=== PATIENT | female | born 1930 | race Caucasian/White ===

== ENCOUNTER → 2017-10-28 | Outpatient (CLI) | payer MEDICARE | END | disposition home or self-care (01) | LOC: KCIC MRI 12:04 | DX: M48.061 Spinal stenosis, lumbar region without neurogenic claudication (principal); M48.56XA Collapsed vertebra, not elsewhere classified, lumbar region, initial encounter for fracture; M51.16 Intervertebral disc disorders with radiculopathy, lumbar region | CPT/HCPCS: 72148 ==

== ENCOUNTER 2018-10-17 09:34 | Emergency (ER) | payer MEDICARE ==
[~2018-10-17] VITALS: Ht 152.4 cm; Wt 61.2 kg
[~2018-10-17 09:34] MED LIST: ACET325T9 PO; ALPR0.5T PO; ASPI-630 PO; BYSTOLIC5 MG PO; CHOL100014 PO; DILT180C2 PO; DILT300C2 PO; FISH1CAP PO; LEVO100T PO; LOVA20TA2 PO; METO25TA4 PO; OMEP40CA2 PO
[2018-10-17 09:43] VITALS: BP 131/74
[2018-10-17] MEDS ORDERED: HYDROcodone/APAP 5/325MG 1 TAB TABLET PO ONE (10:00)
--- NOTE | 2018-10-17 10:50 | RAD ---
3 views left ankle and 3 views left knee HISTORY: Chronic pain AP lateral oblique views left ankle and left knee were obtained 3 views left ankle: There is a mildly comminuted fracture of the distal fibula high above the plafond with half shaft width lateral displacement. The tibiotalar relationship is normal. The remaining visualized osseous structures are grossly intact however there is osteopenia which limits sensitivity for possible nondisplaced fractures. IMPRESSION: Acute traumatic fracture of the distal fibula. End impression 3 views left knee: There is marked degenerative changes of all 3 compartments with marginal spurring. The lateral tibial plateau is depressed and irregular although a sharp fracture line is not seen. IMPRESSION: 1. Marked degenerative changes of the left knee. 2. Lateral tibial plateau fracture of uncertain chronicity. Electronically signed by: Devin Bowen III, MD (10/17/2018 10:47 AM) [id number]
--- NOTE | 2018-10-17 11:35 | RAD ---
Left Lower Extremity Venous Doppler Ultrasound History: pain Comparison: None Procedure: Color flow, duplex, spectral analysis and 2D images are obtained with and without compression in the area of the common femoral vein, superficial femoral vein - femoral vein junction, main femoral vein (superficial femoral vein) and popliteal vein. Veins of the proximal calf are also imaged. Findings: There is normal duplex flow, color flow and compressibility of all visualized vein segments. No evidence of deep venous thrombus is present. There is a large complex fluid collection in the posterior knee that measures 4.1 x 4.9 x 2.5 cm. This has multiple septations and internal echoes. Impression: No evidence of DVT. Large complex fluid collection likely a popliteal cyst. Electronically signed by: Devin Bowen III, MD (10/17/2018 11:33 AM) [id number]
[2018-10-17] MEDS ORDERED: HYDR-3164 PO (12:30)
--- NOTE | 2018-10-17 12:30 | PHYS DOC ---
Past Medical History Past Medical History: Anxiety, Arthritis, High Cholesterol, Hypertension, Hypothyroid, Other Additional Past Medical Histor: HEART PALPITATIONS Past Surgical History: Hysterectomy Alcohol Use: None Drug Use: None Adult General Chief Complaint Chief Complaint: ANKLE PROBLEM HPI HPI Patient is a 88 year old female who presents with complaining of left lower extremity pain. Patient states she was able to bearing weight yesterday without problem with using her walker since this morning she was not able to bearing weight because of severe pain in left leg. Patient denies injury, focal neuro deficit, fever and chills, history of the same problem. Review of Systems Review of Systems Constitutional: Denies fever or chills [] Eyes: Denies change in visual acuity, redness, or eye pain [] HENT: Denies nasal congestion or sore throat [] Respiratory: Denies cough or shortness of breath [] Cardiovascular: No additional information not addressed in HPI [] GI: Denies abdominal pain, nausea, vomiting, bloody stools or diarrhea [] : Denies dysuria or hematuria [] Musculoskeletal: Denies back pain, reports extremity and joint pain [] Integument: Denies rash or skin lesions [] Neurologic: Denies headache, focal weakness or sensory changes [] Endocrine: Denies polyuria or polydipsia [] All other systems were reviewed and found to be within normal limits, except as documented in this note. Current Medications Current Medications Current Medications Medications (Trade) Dose Ordered Sig/Prema Start Time Stop Time Status Last Admin Dose Admin Acetaminophen/ Hydrocodone Bitart (Lortab 5/325) 1 tab 1X ONCE 10/17/18 10:00 10/17/18 10:01 DC 10/17/18 09:59 1 TAB Allergies Allergies Allergies Coded Allergies Type Severity Reaction Last Updated Verified amoxicillin Allergy Intermediate 11/25/13 Yes atenolol Allergy Intermediate 11/25/13 Yes atorvastatin Allergy Intermediate 11/25/13 Yes cerivastatin Allergy Intermediate 11/25/13 Yes citalopram Allergy Intermediate 02/18/18 Yes clavulanic acid Allergy Intermediate 11/25/13 Yes escitalopram Allergy Intermediate 11/25/13 Yes metoprolol Allergy Intermediate 11/25/13 Yes olmesartan Allergy Intermediate 02/18/18 Yes prednisone Allergy Intermediate 02/18/18 Yes ramipril Allergy Intermediate 02/18/18 Yes rosuvastatin Allergy Intermediate 02/18/18 Yes sertraline Allergy Intermediate 11/25/13 Yes verapamil Allergy Intermediate 02/18/18 Yes carvedilol Allergy Unknown 02/17/18 Yes clonazepam Allergy Unknown 02/17/18 Yes levofloxacin Allergy Unknown 02/17/18 Yes simvastatin Allergy Unknown 02/17/18 Yes Physical Exam Physical Exam Constitutional: Well developed, well nourished, mild distress, non-toxic appearance. [] HENT: Normocephalic, atraumatic Eyes: PERRLA, EOMI, conjunctiva normal, no discharge. [] Neck: Normal range of motion, no tenderness, supple, no stridor. [] Cardiovascular:Heart rate regular rhythm, no murmur [] Lungs & Thorax: Bilateral breath sounds clear to auscultation [] Extremities: Left lower extremity without deformity, tenderness in lateral side of left lower leg without neurovascular deficit, bilateral lower extremity 1+ edema, painful range of motion of left lower extremity. Neurologic: Alert and oriented X 3, normal motor function, normal sensory function, no focal deficits noted. [] Psychologic: Affect normal, judgement normal, mood normal. [] Current Patient Data Vital Signs Vital Signs Date Time Temp Pulse Resp B/P (MAP) Pulse Ox O2 Delivery O2 Flow Rate FiO2 10/17/18 09:43 98.3 78 16 131/74 (93) 93 Room Air 98.3 EKG EKG [] Radiology/Procedures Radiology/Procedures [facility] [address] [place] [address] IMAGING REPORT Signed PATIENT: GI HERNANDEZ ACCOUNT: [id number] : 1930 LOCATION: ER AGE: 88 SEX: F EXAM STATUS: REG ER ORD. PHYSICIAN: UTE WOOD MD REASON: pain PROCEDURE: VENOUS LOWER EXTREMITY LEFT Left Lower Extremity Venous Doppler Ultrasound History: pain Comparison: None Procedure: Color flow, duplex, spectral analysis and 2D images are obtained with and without compression in the area of the common femoral vein, superficial femoral vein - femoral vein junction, main femoral vein (superficial femoral vein) and popliteal vein. Veins of the proximal calf are also imaged. Findings: There is normal duplex flow, color flow and compressibility of all visualized vein segments. No evidence of deep venous thrombus is present. There is a large complex fluid collection in the posterior knee that measures 4.1 x 4.9 x 2.5 cm. This has multiple septations and internal echoes. Impression: No evidence of DVT. Large complex fluid collection likely a popliteal cyst. Electronically signed by: Matthew Grossman III, MD (10/17/2018 11:33 AM) [id number] DICTATED and SIGNED BY: MATTHEW GROSSMAN III, MD DATE: 10/17/18 0751 [facility] [address] [place] [address] IMAGING REPORT Signed PATIENT: GI HERNANDEZ ACCOUNT: [id number] : 1930 LOCATION: ER AGE: 88 SEX: F EXAM STATUS: REG ER ORD. PHYSICIAN: UTE WOOD MD REASON: pain, no injury PROCEDURE: ANKLE LEFT 3V 3 views left ankle and 3 views left knee HISTORY: Chronic pain AP lateral oblique views left ankle and left knee were obtained 3 views left ankle: There is a mildly comminuted fracture of the distal fibula high above the plafond with half shaft width lateral displacement. The tibiotalar relationship is normal. The remaining visualized osseous structures are grossly intact however there is osteopenia which limits sensitivity for possible nondisplaced fractures. IMPRESSION: Acute traumatic fracture of the distal fibula. End impression 3 views left knee: There is marked degenerative changes of all 3 compartments with marginal spurring. The lateral tibial plateau is depressed and irregular although a sharp fracture line is not seen. IMPRESSION: 1. Marked degenerative changes of the left knee. 2. Lateral tibial plateau fracture of uncertain chronicity. Electronically signed by: Matthew Grossman III, MD (10/17/2018 10:47 AM) [id number] DICTATED and SIGNED BY: MATTHEW GROSSMAN III, MD DATE: 10/17/18 1045 Course & Med Decision Making Course & Med Decision Making Pertinent Imaging studies reviewed. (See chart for details) Evaluation of patient in ER showed 80-year-old female patient with complaining of pain in left lower extremity without known injury. Patient had distal fibula fracture and splint was applied and was advised to use home watching follow-up with correctional officer sergeant orthopedic physician. She was treated with hydrocodone in the ER and felt better. Dragon Disclaimer Dragon Disclaimer This electronic medical record was generated, in whole or in part, using a voice recognition dictation system. Departure Departure Impression: Primary Impression: Traumatic closed displaced fracture of distal fibula Disposition: HOME, SELF-CARE (at 1226) Condition: IMPROVED Referrals: NO PCP (PCP) SALOME VASQUEZ II, MD Patient Instructions: Fibular Fracture, Adult, Treated Without Immobilization Additional Instructions: Use your home walker Follow-up with correctional officer sergeant orthopedic physician in 2 or 3 days Apply ice on the affected area Follow-up with your primary care physician in 3-5 days Return to ER if not getting better Scripts Hydrocodone/Apap 5-325 (NORCO 5-325 TABLET) 1 Each Tablet 1 TAB PO PRN Q8HRS PRN for PAIN, #20 TAB 0 Refills Prov: UTE WOOD MD 10/17/18 UTE WOOD MD Oct 17, 2018 12:30
== END 2018-10-17 13:18 | disposition home or self-care (01) ==
LOC: ER 09:34
DX: S82.832A Other fracture of upper and lower end of left fibula, initial encounter for closed fracture (principal); F41.9 Anxiety disorder, unspecified; M19.90 Unspecified osteoarthritis, unspecified site; E78.00 Pure hypercholesterolemia, unspecified; I10 Essential (primary) hypertension; E03.9 Hypothyroidism, unspecified; Z90.710 Acquired absence of both cervix and uterus; Z88.1 Allergy status to other antibiotic agents; Z88.8 Allergy status to other drugs, medicaments and biological substances; X58.XXXA Exposure to other specified factors, initial encounter; Y93.89 Activity, other specified; Y92.89 Other specified places as the place of occurrence of the external cause; Y99.8 Other external cause status
CPT/HCPCS: 29515; 73562; 73610; 93971; 99284-25

== ENCOUNTER 2018-10-18 16:35 | Inpatient (IN) | payer MEDICARE ==
[~2018-10-18] VITALS: Ht 160 cm; Wt 54.5 kg
[~2018-10-18 16:35] MED LIST changes: +HYDR-3164 PO
[2018-10-18] MEDS ORDERED: ACETAMINOPHEN/CODEINE 300/30MG TABLET. PO PRN (17:15)
[2018-10-18] MEDS ORDERED: ONDANSETRON PF 4 MG/2 ML VIAL. IV PRN (17:15)
[2018-10-18] MEDS ORDERED: ONDANSETRON ODT 4 MG TAB.RAPDIS. PO PRN (17:15)
[2018-10-18] MEDS ORDERED: HYDROcodone/APAP 5/325MG 1 TAB TABLET PO PRN (17:15)
--- NOTE | 2018-10-18 17:15 | PDOC1 ---
History and Physical Date of Admission Date of Admission DATE: 10/18/18 TIME: 17:07 Identification/Chief Complaint Chief Complaint cant stand up and walk Source Source: Caregiver, Chart review, Patient History of Present Illness History of Present Illness 88-year-old white female, lives alone at home and has more than 1 Walker at home, stood up and hurt her left leg unknowingly on Thursday, which is about 8 days FLOOR SANDER. Since then, has been having difficulty and pain ambulating. Known history of possible osteopenia or even possibly osteoporosis. Known to Dr. Stark. Went to the ER yesterday and showed small fibular fracture, was sent home appropriately with a cast. But family brought her back in because clearly unable to function ADLs at home hence subsequently admitted. They do request Dr. Stark to see her. They are interested in rehabilitation/SNU on dc MUltple allergies, but so far ok with hydrocodones Past Medical History Cardiovascular: HTN, Syncope, Hyperlipidemia, Other Pulmonary: No pertinent hx CENTRAL NERVOUS SYSTEM: Other GI: Constipation, GERD Heme/Onc: No pertinent hx Hepatobiliary: No pertinent hx Psych: No pertinent hx Musculoskeletal: Osteoarthritis Rheumatologic: No pertinent hx Infectious disease: No pertinent hx Renal/: No pertinent hx Endocrine: Hypothyroidism Past Surgical History Past Surgical History: Hysterectomy Family History Family History: Coronary Artery Disease Social History Smoke: No ALCOHOL: none Drugs: None Current Medications Current Medications Active Scripts Active Loyal 5-325 Tablet (Acetaminophen/Hydrocodone Bitart) 1 Each Tablet 1 Tab PO PRN Q8HRS PRN Metoprolol Tartrate 25 Mg Tablet 25 Mg PO BID 30 Days Reported Cardizem Cd (Diltiazem Hcl) 180 Mg Cap.er.24h 180 Mg PO DAILY Aspirin 81 Mg Tab.chew 1 Tab PO DAILY Xanax (Alprazolam) 0.5 Mg Tablet 1 Tab PO BID Tylenol (Acetaminophen) 325 Mg Tablet 1 Tab PO PRN Q4HRS Fish Oil 1,200 Mg Fish Oil (Fish Oil/Dha/Epa) 1 Each Capsule 1 Each PO Lovastatin 20 Mg Tablet 20 Mg PO DAILY16 Synthroid (Levothyroxine Sodium) 100 Mcg Tablet 100 Mcg PO Prilosec (Omeprazole) 40 Mg Capsule.dr 40 Mg PO Allergies Allergies: Coded Allergies: amoxicillin (Verified Allergy, Intermediate, 11/25/13) atenolol (Verified Allergy, Intermediate, 11/25/13) atorvastatin (Verified Allergy, Intermediate, 11/25/13) cerivastatin (Verified Allergy, Intermediate, 11/25/13) citalopram (Verified Allergy, Intermediate, 02/18/18) clavulanic acid (Verified Allergy, Intermediate, 11/25/13) escitalopram (Verified Allergy, Intermediate, 11/25/13) metoprolol (Verified Allergy, Intermediate, 11/25/13) olmesartan (Verified Allergy, Intermediate, 02/18/18) prednisone (Verified Allergy, Intermediate, 02/18/18) ramipril (Verified Allergy, Intermediate, 02/18/18) rosuvastatin (Verified Allergy, Intermediate, 02/18/18) sertraline (Verified Allergy, Intermediate, 11/25/13) verapamil (Verified Allergy, Intermediate, 02/18/18) carvedilol (Verified Allergy, Unknown, 02/17/18) clonazepam (Verified Allergy, Unknown, 02/17/18) levofloxacin (Verified Allergy, Unknown, 02/17/18) simvastatin (Verified Allergy, Unknown, 02/17/18) ROS Review of System left Leg pain otherwise the rest of ROS 14 point negative Physical Exam General: Alert, Oriented X3, Cooperative, No acute distress HEENT: Atraumatic, PERRLA, EOMI Lungs: Clear to auscultation, Normal air movement Heart: S1S2, RRR, no thrills, no rubs, no gallops, no murmurs Cardiovascular: S1, S2 Breasts: Normal, Rt breast nml w/o mass, Lt breast nml w/o mass, Nipples normal Abdomen: Normal bowel sounds, Soft, No tenderness, No hepatosplenomegaly, No masses PELVIC: Nml ext genitalia Extremities: Other (left leg cast -she is in a wheelchair) Skin: No rashes, No breakdown, No significant lesion Neuro: Normal gait, Normal speech, Strength at 5/5 X4 ext, Normal tone, Sensation intact, Cranial nerves 3-12 NL, Reflexes 2+ Psych/Mental Status: Mental status NL, Mood NL VTE Prophylaxis Ordered VTE Prophylaxis Devices: Yes VTE Pharmacological Prophylaxi: Yes Assessment/Plan Assessment/Plan Fibular fracture acute onset-duration 7 days Possible osteoporosis Possible vitamin D deficiency Multiple allergies Hypothyroidism on Synthroid GERD on PPI Dyslipidemia on statin Allergies on Flonase Hypertension on Cardizem PLAN: Admit [address] Stark PT OT Home meds I have reconciled Pain control Social work-snu/rehabilitation FULL CODE DW family GINGER ALBA Y Oct 18, 2018 17:15
[2018-10-18 17:27] LABS: BASO # 0.1 x10^3/uL (0.0-0.2); BASO % 1 % (0-3); EOS % 0 % (0-3); HEMATOCRIT 36.4 % (36.0-47.0); LYMPH # 2.1 x10^3/uL (1.0-4.8); LYMPH % 26 % (24-48); MEAN CORPUSCULAR HEMOGLOBIN 29 pg (25-35); MEAN CORPUSCULAR HGB CONC 33 g/dL (31-37); MEAN CORPUSCULAR VOLUME 89 fL (79-100); MONO # 0.9 x10^3/uL (0.0-1.1); MONO % 11 % (0-9); NEUT # 5.1 x10^3uL (1.8-7.7); NEUT % 62 % (31-73); PLATELET COUNT 409 x10^3/uL (140-400); WHITE BLOOD COUNT 8.2 x10^3/uL (4.0-11.0)
[2018-10-18] MEDS ORDERED: ACETAMINOPHEN 325 MG TABLET. PO PRN (17:30)
--- NOTE | 2018-10-18 17:34 | PHYS DOC ---
Past Medical History Past Medical History: Anxiety, Arthritis, High Cholesterol, Hypertension, Hypothyroid, Other Additional Past Medical Histor: HEART PALPITATIONS Past Surgical History: Hysterectomy Alcohol Use: None Drug Use: None Adult General Chief Complaint Chief Complaint: LOWER EXT PAIN HPI HPI Patient is a 88 year old female who presents with complaining of weakness and unable to use walker. Patient was seen in this emergency room yesterday and was diagnosed with left fibular shaft fracture and had splint placement. Patient had walker at home and was discharged home with instructions with follow-up with consumer services advisor orthopedic physician but patient brought back to emergency room because she was not able to use her walker because of upper extremity weakness. She denies focal neuro deficit and denies pain in her left leg without bearing weight. Review of Systems Review of Systems Constitutional: Denies fever or chills [] Eyes: Denies change in visual acuity, redness, or eye pain [] HENT: Denies nasal congestion or sore throat [] Respiratory: Denies cough or shortness of breath [] Cardiovascular: No additional information not addressed in HPI [] GI: Denies abdominal pain, nausea, vomiting, bloody stools or diarrhea [] : Denies dysuria or hematuria [] Musculoskeletal: Denies back pain, reports joint pain [] Integument: Denies rash or skin lesions [] Neurologic: Denies headache, focal weakness or sensory changes [] Endocrine: Denies polyuria or polydipsia [] All other systems were reviewed and found to be within normal limits, except as documented in this note. Current Medications Current Medications Current Medications Medications (Trade) Dose Ordered Sig/Prema Start Time Stop Time Status Last Admin Dose Admin Acetaminophen (Tylenol) 500 mg PRN Q6HRS PRN 10/18/18 17:15 Acetaminophen/ Codeine Phosphate (Tylenol #3) 1 tab PRN Q6HRS PRN 10/18/18 17:15 Acetaminophen/ Hydrocodone Bitart (Lortab 5/325) 1 tab PRN Q4HRS PRN 10/18/18 17:15 Ondansetron HCl (Zofran Odt) 4 mg PRN Q6HRS PRN 10/18/18 17:15 Ondansetron HCl (Zofran) 4 mg PRN Q6HRS PRN 10/18/18 17:15 Allergies Allergies Allergies Coded Allergies Type Severity Reaction Last Updated Verified amoxicillin Allergy Intermediate 11/25/13 Yes atenolol Allergy Intermediate 11/25/13 Yes atorvastatin Allergy Intermediate 11/25/13 Yes cerivastatin Allergy Intermediate 11/25/13 Yes citalopram Allergy Intermediate 02/18/18 Yes clavulanic acid Allergy Intermediate 11/25/13 Yes escitalopram Allergy Intermediate 11/25/13 Yes metoprolol Allergy Intermediate 11/25/13 Yes olmesartan Allergy Intermediate 02/18/18 Yes prednisone Allergy Intermediate 02/18/18 Yes ramipril Allergy Intermediate 02/18/18 Yes rosuvastatin Allergy Intermediate 02/18/18 Yes sertraline Allergy Intermediate 11/25/13 Yes verapamil Allergy Intermediate 02/18/18 Yes carvedilol Allergy Unknown 02/17/18 Yes clonazepam Allergy Unknown 02/17/18 Yes levofloxacin Allergy Unknown 02/17/18 Yes simvastatin Allergy Unknown 02/17/18 Yes Physical Exam Physical Exam Constitutional: Well developed, well nourished, mild distress, non-toxic appearance. [] HENT: Normocephalic, atraumatic. Eyes: PERRLA, EOMI, conjunctiva normal, no discharge. [] Neck: Normal range of motion, no tenderness, supple, no stridor. [] Cardiovascular:Heart rate regular rhythm, no murmur [] Lungs & Thorax: Bilateral breath sounds clear to auscultation [] Skin: Warm, dry, no erythema, no rash. [] Back: No tenderness, no CVA tenderness. [] Extremities: Left lower extremity in a splint with normal cap refill in the left toes, no cyanosis, no clubbing, ROM intact, no edema. [] Neurologic: Alert and oriented X 3, normal motor function, normal sensory function, no focal deficits noted. [] Psychologic: Affect normal, judgement normal, mood normal. [] Current Patient Data Lab Values Laboratory Tests Test 10/18/18 17:11 White Blood Count 8.2 x10^3/uL (4.0-11.0) Red Blood Count 4.10 x10^6/uL (3.50-5.40) Hemoglobin 12.0 g/dL (12.0-15.5) Hematocrit 36.4 % (36.0-47.0) Mean Corpuscular Volume 89 fL (79-100) Mean Corpuscular Hemoglobin 29 pg (25-35) Mean Corpuscular Hemoglobin Concent 33 g/dL (31-37) Red Cell Distribution Width 15.0 % (11.5-14.5) H Platelet Count 409 x10^3/uL (140-400) H Neutrophils (%) (Auto) 62 % (31-73) Lymphocytes (%) (Auto) 26 % (24-48) Monocytes (%) (Auto) 11 % (0-9) H Eosinophils (%) (Auto) 0 % (0-3) Basophils (%) (Auto) 1 % (0-3) Neutrophils # (Auto) 5.1 x10^3uL (1.8-7.7) Lymphocytes # (Auto) 2.1 x10^3/uL (1.0-4.8) Monocytes # (Auto) 0.9 x10^3/uL (0.0-1.1) Eosinophils # (Auto) 0.0 x10^3/uL (0.0-0.7) Basophils # (Auto) 0.1 x10^3/uL (0.0-0.2) Prothrombin Time 12.4 SEC (11.7-14.0) Prothrombin Time INR 1.0 (0.8-1.1) Sodium Level 134 mmol/L (136-145) L Potassium Level 3.5 mmol/L (3.5-5.1) Chloride Level 97 mmol/L (98-107) L Carbon Dioxide Level 27 mmol/L (21-32) Anion Gap 10 (6-14) Blood Urea Nitrogen 18 mg/dL (7-20) Creatinine 1.0 mg/dL (0.6-1.0) Estimated GFR (Cockcroft-Gault) 52.3 BUN/Creatinine Ratio 18 (6-20) Glucose Level 119 mg/dL (70-99) H Calcium Level 9.5 mg/dL (8.5-10.1) Total Bilirubin 0.4 mg/dL (0.2-1.0) Aspartate Amino Transferase (AST) 20 U/L (15-37) Alanine Aminotransferase (ALT) 16 U/L (14-59) Alkaline Phosphatase 64 U/L (46-116) Total Protein 7.6 g/dL (6.4-8.2) Albumin 3.5 g/dL (3.4-5.0) Albumin/Globulin Ratio 0.9 (1.0-1.7) L Laboratory Tests 10/18/18 17:11 Laboratory Tests 10/18/18 17:11 EKG EKG [] Radiology/Procedures Radiology/Procedures [] Course & Med Decision Making Course & Med Decision Making Pertinent Labs reviewed. (See chart for details) Patient requiring admission for further evaluation and treatment. Discussed with Dr. Isidro who is in agreement with admission. Discussed findings and plan with patient and family, who acknowledge understanding and agreement. Dragon Disclaimer Dragon Disclaimer This electronic medical record was generated, in whole or in part, using a voice recognition dictation system. Departure Departure Impression: Primary Impression: Weakness Additional Impression: Fibula fracture Disposition: 09 ADMITTED INPATIENT Admitting Physician: Juana Isidro Condition: IMPROVED Referrals: NO PCP (PCP) Problem Qualifiers Additional Impression: Fibula fracture Encounter type: sequela Fibula location: shaft Fracture type: closed Fracture morphology: comminuted Fracture alignment: nondisplaced Laterality: left Qualified Codes: S82.455S - Nondisplaced comminuted fracture of shaft of left fibula, sequela UTE WOOD MD Oct 18, 2018 17:34
[2018-10-18 17:42] LABS: CALCIUM 9.5 mg/dL (8.5-10.1); GFR 52.3; POTASSIUM 3.5 mmol/L (3.5-5.1)
[2018-10-18 17:45] LABS: PROTHROMBIN TIME PATIENT 12.4 SEC (11.7-14.0)
[2018-10-18 17:48] LABS: ALBUMIN 3.5 g/dL (3.4-5.0); ALBUMIN/GLOBULIN RATIO 0.9 (1.0-1.7); TOTAL BILIRUBIN 0.4 mg/dL (0.2-1.0); TOTAL PROTEIN 7.6 g/dL (6.4-8.2)
[2018-10-18 18:30] VITALS: BP 138/77
[2018-10-18] MEDS: ALPRAZolam 0.5 MG TABLET PO SCH (21:00)
[2018-10-18] MEDS: METOPROLOL TART IMMED RELEASE 25 MG TABLET. PO SCH (21:33)
[2018-10-18 23:00] VITALS: BP 134/70
[2018-10-19] MEDS: ACETAMINOPHEN 500 MG TABLET PO PRN (01:33)
[2018-10-19 03:00] VITALS: BP 147/76
[2018-10-19] MEDS: LEVOTHYROXINE 100 MCG TABLET PO SCH (05:35)
[2018-10-19 07:00] VITALS: BP 150/75
[2018-10-19] MEDS: ALPRAZolam 0.5 MG TABLET PO SCH ×2 (09:00→21:28)
--- NOTE | 2018-10-19 09:11 | NUR ---
SW following for discharge planning. Chart reviewed, discussed with RN, pt is from home alone. Waiting on ortho consult and PT/OT recommendations. Family interested in SNU at discharge. SW will continue to follow.
[2018-10-19] MEDS: OMEGA-3 FATTY ACIDS/FISH OIL 1,000 MG CAPSULE. PO SCH (09:34)
[2018-10-19] MEDS: PANTOPRAZOLE 40 MG TABLET.DR. PO SCH (09:34)
[2018-10-19] MEDS: ASPIRIN CHEWABLE 81 MG TABLET. PO SCH (09:34)
[2018-10-19] MEDS: FLUTICASONE 50MCG/NASAL SPRAY 16GM BOTTLE. NS SCH (09:35)
[2018-10-19] MEDS: METOPROLOL TART IMMED RELEASE 25 MG TABLET. PO SCH ×2 (09:35→21:28)
[2018-10-19 11:00] VITALS: BP 137/81
--- NOTE | 2018-10-19 11:32 | PDOC ---
PROGRESS NOTES Chief Complaint Chief Complaint L Fibular Fracture History of Present Illness History of Present Illness The patient was seen resting comfortably in bed today. She is doing well with no complaints. Vitals Vitals Vital Signs Date Time Temp Pulse Resp B/P (MAP) Pulse Ox O2 Delivery O2 Flow Rate FiO2 10/19/18 09:35 75 150/75 10/19/18 08:00 Room Air 10/19/18 07:00 98.8 18 93 98.8 Physical Exam General: Alert, Oriented X3, Cooperative, No acute distress Heart: Regular rate, Normal S1, Normal S2, No murmurs Lungs: Clear (No wheezes, rales, or rhonchi) Abdomen: Soft, No tenderness, No masses Extremities: No edema, Normal pulses, No tenderness/swelling, Other (left leg cast -she is in a wheelchair) Skin: No rashes, No breakdown, No significant lesion Labs LABS Laboratory Tests Test 10/18/18 17:11 White Blood Count 8.2 x10^3/uL (4.0-11.0) Red Blood Count 4.10 x10^6/uL (3.50-5.40) Hemoglobin 12.0 g/dL (12.0-15.5) Hematocrit 36.4 % (36.0-47.0) Mean Corpuscular Volume 89 fL (79-100) Mean Corpuscular Hemoglobin 29 pg (25-35) Mean Corpuscular Hemoglobin Concent 33 g/dL (31-37) Red Cell Distribution Width 15.0 % (11.5-14.5) Platelet Count 409 x10^3/uL (140-400) Neutrophils (%) (Auto) 62 % (31-73) Lymphocytes (%) (Auto) 26 % (24-48) Monocytes (%) (Auto) 11 % (0-9) Eosinophils (%) (Auto) 0 % (0-3) Basophils (%) (Auto) 1 % (0-3) Neutrophils # (Auto) 5.1 x10^3uL (1.8-7.7) Lymphocytes # (Auto) 2.1 x10^3/uL (1.0-4.8) Monocytes # (Auto) 0.9 x10^3/uL (0.0-1.1) Eosinophils # (Auto) 0.0 x10^3/uL (0.0-0.7) Basophils # (Auto) 0.1 x10^3/uL (0.0-0.2) Prothrombin Time 12.4 SEC (11.7-14.0) Prothromb Time International Ratio 1.0 (0.8-1.1) Sodium Level 134 mmol/L (136-145) Potassium Level 3.5 mmol/L (3.5-5.1) Chloride Level 97 mmol/L (98-107) Carbon Dioxide Level 27 mmol/L (21-32) Anion Gap 10 (6-14) Blood Urea Nitrogen 18 mg/dL (7-20) Creatinine 1.0 mg/dL (0.6-1.0) Estimated GFR (Cockcroft-Gault) 52.3 BUN/Creatinine Ratio 18 (6-20) Glucose Level 119 mg/dL (70-99) Calcium Level 9.5 mg/dL (8.5-10.1) Total Bilirubin 0.4 mg/dL (0.2-1.0) Aspartate Amino Transf (AST/SGOT) 20 U/L (15-37) Alanine Aminotransferase (ALT/SGPT) 16 U/L (14-59) Alkaline Phosphatase 64 U/L (46-116) Total Protein 7.6 g/dL (6.4-8.2) Albumin 3.5 g/dL (3.4-5.0) Albumin/Globulin Ratio 0.9 (1.0-1.7) 25-Hydroxy Vitamin D Total 25.7 ng/mL (30-100) Review of Systems Review of Systems Patient denies fevers, chills, N/V, CP, SOB, and diarrhea Assessment and Plan Assessmemt and Plan Problems Medical Problems: (1) Fibula fracture Status: Acute (2) Weakness Status: Acute Assessment: Fibular fracture acute onset-duration 7 days Possible osteoporosis Possible vitamin D deficiency Multiple allergies Hypothyroidism on Synthroid GERD on PPI Dyslipidemia on statin Allergies on Flonase Hypertension on Cardizem Plan: Admit [address] Stark- enrique PT/OT DVT prophylaxis Continue home meds F/u labs SNU eval Comment Review of Relevant I have reviewed the following items lubna (where applicable) has been applied. Labs Laboratory Tests Test 10/18/18 17:11 White Blood Count 8.2 x10^3/uL (4.0-11.0) Red Blood Count 4.10 x10^6/uL (3.50-5.40) Hemoglobin 12.0 g/dL (12.0-15.5) Hematocrit 36.4 % (36.0-47.0) Mean Corpuscular Volume 89 fL (79-100) Mean Corpuscular Hemoglobin 29 pg (25-35) Mean Corpuscular Hemoglobin Concent 33 g/dL (31-37) Red Cell Distribution Width 15.0 % (11.5-14.5) Platelet Count 409 x10^3/uL (140-400) Neutrophils (%) (Auto) 62 % (31-73) Lymphocytes (%) (Auto) 26 % (24-48) Monocytes (%) (Auto) 11 % (0-9) Eosinophils (%) (Auto) 0 % (0-3) Basophils (%) (Auto) 1 % (0-3) Neutrophils # (Auto) 5.1 x10^3uL (1.8-7.7) Lymphocytes # (Auto) 2.1 x10^3/uL (1.0-4.8) Monocytes # (Auto) 0.9 x10^3/uL (0.0-1.1) Eosinophils # (Auto) 0.0 x10^3/uL (0.0-0.7) Basophils # (Auto) 0.1 x10^3/uL (0.0-0.2) Prothrombin Time 12.4 SEC (11.7-14.0) Prothromb Time International Ratio 1.0 (0.8-1.1) Sodium Level 134 mmol/L (136-145) Potassium Level 3.5 mmol/L (3.5-5.1) Chloride Level 97 mmol/L (98-107) Carbon Dioxide Level 27 mmol/L (21-32) Anion Gap 10 (6-14) Blood Urea Nitrogen 18 mg/dL (7-20) Creatinine 1.0 mg/dL (0.6-1.0) Estimated GFR (Cockcroft-Gault) 52.3 BUN/Creatinine Ratio 18 (6-20) Glucose Level 119 mg/dL (70-99) Calcium Level 9.5 mg/dL (8.5-10.1) Total Bilirubin 0.4 mg/dL (0.2-1.0) Aspartate Amino Transf (AST/SGOT) 20 U/L (15-37) Alanine Aminotransferase (ALT/SGPT) 16 U/L (14-59) Alkaline Phosphatase 64 U/L (46-116) Total Protein 7.6 g/dL (6.4-8.2) Albumin 3.5 g/dL (3.4-5.0) Albumin/Globulin Ratio 0.9 (1.0-1.7) 25-Hydroxy Vitamin D Total 25.7 ng/mL (30-100) Laboratory Tests Test 10/18/18 17:11 White Blood Count 8.2 x10^3/uL (4.0-11.0) Red Blood Count 4.10 x10^6/uL (3.50-5.40) Hemoglobin 12.0 g/dL (12.0-15.5) Hematocrit 36.4 % (36.0-47.0) Mean Corpuscular Volume 89 fL (79-100) Mean Corpuscular Hemoglobin 29 pg (25-35) Mean Corpuscular Hemoglobin Concent 33 g/dL (31-37) Red Cell Distribution Width 15.0 % (11.5-14.5) Platelet Count 409 x10^3/uL (140-400) Neutrophils (%) (Auto) 62 % (31-73) Lymphocytes (%) (Auto) 26 % (24-48) Monocytes (%) (Auto) 11 % (0-9) Eosinophils (%) (Auto) 0 % (0-3) Basophils (%) (Auto) 1 % (0-3) Neutrophils # (Auto) 5.1 x10^3uL (1.8-7.7) Lymphocytes # (Auto) 2.1 x10^3/uL (1.0-4.8) Monocytes # (Auto) 0.9 x10^3/uL (0.0-1.1) Eosinophils # (Auto) 0.0 x10^3/uL (0.0-0.7) Basophils # (Auto) 0.1 x10^3/uL (0.0-0.2) Prothrombin Time 12.4 SEC (11.7-14.0) Prothromb Time International Ratio 1.0 (0.8-1.1) Sodium Level 134 mmol/L (136-145) Potassium Level 3.5 mmol/L (3.5-5.1) Chloride Level 97 mmol/L (98-107) Carbon Dioxide Level 27 mmol/L (21-32) Anion Gap 10 (6-14) Blood Urea Nitrogen 18 mg/dL (7-20) Creatinine 1.0 mg/dL (0.6-1.0) Estimated GFR (Cockcroft-Gault) 52.3 BUN/Creatinine Ratio 18 (6-20) Glucose Level 119 mg/dL (70-99) Calcium Level 9.5 mg/dL (8.5-10.1) Total Bilirubin 0.4 mg/dL (0.2-1.0) Aspartate Amino Transf (AST/SGOT) 20 U/L (15-37) Alanine Aminotransferase (ALT/SGPT) 16 U/L (14-59) Alkaline Phosphatase 64 U/L (46-116) Total Protein 7.6 g/dL (6.4-8.2) Albumin 3.5 g/dL (3.4-5.0) Albumin/Globulin Ratio 0.9 (1.0-1.7) 25-Hydroxy Vitamin D Total 25.7 ng/mL (30-100) Medications Current Medications Acetaminophen/ Hydrocodone Bitart (Lortab 5/325) 1 tab PRN Q4HRS PRN PO SEVERE PAIN; Start 10/18/18 at 17:15 Acetaminophen (Tylenol) 500 mg PRN Q6HRS PRN PO MILD PAIN / TEMP Last administered on 10/19/18at 01:33; Start 10/18/18 at 17:15 Acetaminophen/ Codeine Phosphate (Tylenol #3) 1 tab PRN Q6HRS PRN PO MODERATE PAIN; Start 10/18/18 at 17:15 Ondansetron HCl (Zofran) 4 mg PRN Q6HRS PRN IV NAUSEA/VOMITING; Start 10/18/18 at 17:15 Ondansetron HCl (Zofran Odt) 4 mg PRN Q6HRS PRN PO NAUSEA/VOMITING; Start 10/18/18 at 17:15 Acetaminophen (Tylenol) 325 mg PRN Q4HRS PRN PO MILD PAIN / TEMP; Start 10/18/18 at 17:30 Alprazolam (Xanax) 0.5 mg BID PO ; Start 10/18/18 at 21:00 Aspirin (Children'S Aspirin) 81 mg DAILY PO Last administered on 10/19/18 09:34; Start 10/19/18 at 09:00 Levothyroxine Sodium (Synthroid) 100 mcg DAILY06 PO Last administered on 10/19/18 05:35; Start 10/19/18 at 06:00 Metoprolol Tartrate (Lopressor) 25 mg BID PO Last administered on 10/19/18 09:35; Start 10/18/18 at 21:00 Diltiazem HCl (Cardizem 24hr Cd) 180 mg DAILY PO Last administered on 10/19/18 09:35; Start 10/19/18 at 09:00 Non-Formulary Medication (Lovastatin ) 20 mg DAILY16 PO ; Start 10/19/18 at 16:00; Status UNV Fish Oil (Fish Oil) 1,000 mg DAILY PO Last administered on 10/19/18 09:34; Start 10/19/18 at 09:00 Pantoprazole Sodium (Protonix) 40 mg DAILYAC PO Last administered on 10/19/18 09:34; Start 10/19/18 at 07:30 Fluticasone Propionate (Flonase) 2 spray DAILY NS Last administered on 10/19/18 09:35; Start 10/19/18 at 09:00 Active Scripts Active [place] 5-325 Tablet (Acetaminophen/Hydrocodone Bitart) 1 Each Tablet 1 Tab PO PRN Q8HRS PRN Metoprolol Tartrate 25 Mg Tablet 25 Mg PO BID 30 Days Reported Cardizem Cd (Diltiazem Hcl) 180 Mg Cap.er.24h 180 Mg PO DAILY Aspirin 81 Mg Tab.chew 1 Tab PO DAILY Xanax (Alprazolam) 0.5 Mg Tablet 1 Tab PO BID Tylenol (Acetaminophen) 325 Mg Tablet 1 Tab PO PRN Q4HRS Fish Oil 1,200 Mg Fish Oil (Fish Oil/Dha/Epa) 1 Each Capsule 1 Each PO Lovastatin 20 Mg Tablet 20 Mg PO DAILY16 Synthroid (Levothyroxine Sodium) 100 Mcg Tablet 100 Mcg PO Prilosec (Omeprazole) 40 Mg Capsule.dr 40 Mg PO Vitals/I & O Vital Sign - Last 24 Hours 10/18/18 10/18/18 10/18/18 10/18/18 17:38 18:01 18:30 20:00 Temp 98.4 98.4 Pulse 96 98 87 Resp 16 18 18 B/P (MAP) 139/78 (98) 128/83 (98) 138/77 (97) Pulse Ox 95 95 96 O2 Delivery Room Air Room Air Room Air 10/18/18 10/18/18 10/19/18 10/19/18 21:33 23:00 03:00 07:00 Temp 98.4 97.7 98.8 98.4 97.7 98.8 Pulse 87 70 80 75 Resp 16 18 18 B/P (MAP) 138/77 134/70 (91) 147/76 (99) 150/75 (100) Pulse Ox 94 91 93 O2 Delivery Room Air Room Air Room Air 10/19/18 10/19/18 10/19/18 08:00 09:35 09:35 Pulse 75 75 B/P (MAP) 150/75 150/75 O2 Delivery Room Air JAMES SHELTON III DO Oct 19, 2018 11:32
[2018-10-19 15:00] VITALS: BP 155/75
[2018-10-19] MEDS ORDERED: NON FORMULARY ITEM (Lovastatin 20 MG) PO SCH (16:00)
--- NOTE | 2018-10-19 19:10 | PDOC2 ---
CONSULT Date of Consult Date of Consult DATE: 10/19/18 TIME: 19:03 Reason for Consult Reason for Consult: left fibula fracture Identification/Chief Complaint Chief Complaint left leg pain after a fall Source Source: Chart review, Patient History of Present Illness Reason for Visit: 88 year old woman who lives alone. She sustained a fibula fracture, and was treated in a splint, but had too much pain to care for herself. Since then, has been having difficulty and pain ambulating. Known history of possible osteopenia or even possibly osteoporosis. Known to Dr. Stark. Went to the ER and showed fibula shaft fracture, was sent home. But family brought her back in because clearly unable to function ADLs at home hence subsequently admitted. They do request Dr. 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 They are interested in rehabilitation/SNU on dc. She sometimes still drives. Her son and daughter frequently help her. Past Medical History Cardiovascular: HTN, Syncope, Hyperlipidemia, Other Pulmonary: No pertinent hx CENTRAL NERVOUS SYSTEM: Other GI: Constipation, GERD Heme/Onc: No pertinent hx Hepatobiliary: No pertinent hx Psych: No pertinent hx Musculoskeletal: Osteoarthritis Rheumatologic: No pertinent hx Infectious disease: No pertinent hx Renal/: No pertinent hx Endocrine: Hypothyroidism Past Surgical History Past Surgical History: Hysterectomy Family History Family History: Coronary Artery Disease Social History No ALCOHOL: none Drugs: None Lives: Alone Domestic Violence: Neg Current Problem List Problem List Problems Medical Problems: (1) Fibula fracture Status: Acute (2) Weakness Status: Acute Current Medications Current Medications Current Medications Acetaminophen/ Hydrocodone Bitart (Lortab 5/325) 1 tab PRN Q4HRS PRN PO SEVERE PAIN; Start 10/18/18 at 17:15 Acetaminophen (Tylenol) 500 mg PRN Q6HRS PRN PO MILD PAIN / TEMP Last administered on 10/19/18at 01:33; Start 10/18/18 at 17:15 Acetaminophen/ Codeine Phosphate (Tylenol #3) 1 tab PRN Q6HRS PRN PO MODERATE PAIN; Start 10/18/18 at 17:15 Ondansetron HCl (Zofran) 4 mg PRN Q6HRS PRN IV NAUSEA/VOMITING; Start 10/18/18 at 17:15 Ondansetron HCl (Zofran Odt) 4 mg PRN Q6HRS PRN PO NAUSEA/VOMITING; Start 10/18/18 at 17:15 Acetaminophen (Tylenol) 325 mg PRN Q4HRS PRN PO MILD PAIN / TEMP; Start 10/18/18 at 17:30 Alprazolam (Xanax) 0.5 mg BID PO ; Start 10/18/18 at 21:00 Aspirin (Children'S Aspirin) 81 mg DAILY PO Last administered on 10/19/18 09:34; Start 10/19/18 at 09:00 Levothyroxine Sodium (Synthroid) 100 mcg DAILY06 PO Last administered on 10/19/18 05:35; Start 10/19/18 at 06:00 Metoprolol Tartrate (Lopressor) 25 mg BID PO Last administered on 10/19/18 09:35; Start 10/18/18 at 21:00 Diltiazem HCl (Cardizem 24hr Cd) 180 mg DAILY PO Last administered on 10/19/18 09:35; Start 10/19/18 at 09:00 Non-Formulary Medication (Lovastatin ) 20 mg DAILY16 PO ; Start 10/19/18 at 16:00; Stop 10/19/18 at 16:24; Status DC Fish Oil (Fish Oil) 1,000 mg DAILY PO Last administered on 10/19/18 09:34; Start 10/19/18 at 09:00 Pantoprazole Sodium (Protonix) 40 mg DAILYAC PO Last administered on 10/19/18 09:34; Start 10/19/18 at 07:30 Fluticasone Propionate (Flonase) 2 spray DAILY NS Last administered on 10/19/18 09:35; Start 10/19/18 at 09:00 Non-Formulary Medication (Lovastatin ) 20 mg QMWF PO ; Start 10/20/18 at 16:00 Active Scripts Active [place] 5-325 Tablet (Acetaminophen/Hydrocodone Bitart) 1 Each Tablet 1 Tab PO PRN Q8HRS PRN Metoprolol Tartrate 25 Mg Tablet 25 Mg PO BID 30 Days Reported Cardizem Cd (Diltiazem Hcl) 180 Mg Cap.er.24h 180 Mg PO DAILY Aspirin 81 Mg Tab.chew 1 Tab PO DAILY Xanax (Alprazolam) 0.5 Mg Tablet 1 Tab PO BID Tylenol (Acetaminophen) 325 Mg Tablet 1 Tab PO PRN Q4HRS Fish Oil 1,200 Mg Fish Oil (Fish Oil/Dha/Epa) 1 Each Capsule 1 Each PO Lovastatin 20 Mg Tablet 20 Mg PO DAILY16 Synthroid (Levothyroxine Sodium) 100 Mcg Tablet 100 Mcg PO Prilosec (Omeprazole) 40 Mg Capsule.dr 40 Mg PO Allergies Allergies: Coded Allergies: amoxicillin (Verified Allergy, Intermediate, 11/25/13) atenolol (Verified Allergy, Intermediate, 11/25/13) atorvastatin (Verified Allergy, Intermediate, 11/25/13) cerivastatin (Verified Allergy, Intermediate, 11/25/13) citalopram (Verified Allergy, Intermediate, 02/18/18) clavulanic acid (Verified Allergy, Intermediate, 11/25/13) escitalopram (Verified Allergy, Intermediate, 11/25/13) metoprolol (Verified Allergy, Intermediate, 11/25/13) olmesartan (Verified Allergy, Intermediate, 02/18/18) prednisone (Verified Allergy, Intermediate, 02/18/18) ramipril (Verified Allergy, Intermediate, 02/18/18) rosuvastatin (Verified Allergy, Intermediate, 02/18/18) sertraline (Verified Allergy, Intermediate, 11/25/13) verapamil (Verified Allergy, Intermediate, 02/18/18) carvedilol (Verified Allergy, Unknown, 02/17/18) clonazepam (Verified Allergy, Unknown, 02/17/18) levofloxacin (Verified Allergy, Unknown, 02/17/18) simvastatin (Verified Allergy, Unknown, 02/17/18) Physical Exam General: Alert, Cooperative HEENT: Atraumatic Lungs: Normal air movement Extremities: No cyanosis, Other (mild edema. splint on left leg. tenderness at mid fibula.) Skin: No significant lesion Neuro: Sensation intact Vitals VITALS Vital Signs Date Time Temp Pulse Resp B/P (MAP) Pulse Ox O2 Delivery O2 Flow Rate FiO2 10/19/18 15:00 98.3 77 18 155/75 (101) 92 Room Air 98.3 Labs Labs Laboratory Tests Test 10/18/18 17:11 White Blood Count 8.2 x10^3/uL (4.0-11.0) Red Blood Count 4.10 x10^6/uL (3.50-5.40) Hemoglobin 12.0 g/dL (12.0-15.5) Hematocrit 36.4 % (36.0-47.0) Mean Corpuscular Volume 89 fL (79-100) Mean Corpuscular Hemoglobin 29 pg (25-35) Mean Corpuscular Hemoglobin Concent 33 g/dL (31-37) Red Cell Distribution Width 15.0 % (11.5-14.5) Platelet Count 409 x10^3/uL (140-400) Neutrophils (%) (Auto) 62 % (31-73) Lymphocytes (%) (Auto) 26 % (24-48) Monocytes (%) (Auto) 11 % (0-9) Eosinophils (%) (Auto) 0 % (0-3) Basophils (%) (Auto) 1 % (0-3) Neutrophils # (Auto) 5.1 x10^3uL (1.8-7.7) Lymphocytes # (Auto) 2.1 x10^3/uL (1.0-4.8) Monocytes # (Auto) 0.9 x10^3/uL (0.0-1.1) Eosinophils # (Auto) 0.0 x10^3/uL (0.0-0.7) Basophils # (Auto) 0.1 x10^3/uL (0.0-0.2) Prothrombin Time 12.4 SEC (11.7-14.0) Prothromb Time International Ratio 1.0 (0.8-1.1) Sodium Level 134 mmol/L (136-145) Potassium Level 3.5 mmol/L (3.5-5.1) Chloride Level 97 mmol/L (98-107) Carbon Dioxide Level 27 mmol/L (21-32) Anion Gap 10 (6-14) Blood Urea Nitrogen 18 mg/dL (7-20) Creatinine 1.0 mg/dL (0.6-1.0) Estimated GFR (Cockcroft-Gault) 52.3 BUN/Creatinine Ratio 18 (6-20) Glucose Level 119 mg/dL (70-99) Calcium Level 9.5 mg/dL (8.5-10.1) Total Bilirubin 0.4 mg/dL (0.2-1.0) Aspartate Amino Transf (AST/SGOT) 20 U/L (15-37) Alanine Aminotransferase (ALT/SGPT) 16 U/L (14-59) Alkaline Phosphatase 64 U/L (46-116) Total Protein 7.6 g/dL (6.4-8.2) Albumin 3.5 g/dL (3.4-5.0) Albumin/Globulin Ratio 0.9 (1.0-1.7) 25-Hydroxy Vitamin D Total 25.7 ng/mL (30-100) Images Images Reports reviewed, images independently reviewed. Knee x-rays from 03/12/18 show bilateral knee severe osteoarthritis. The left knee lateral tibia deformity was present in February and does not represent an acute plateau fracture. The fibula shaft has a mildly displaced fracture with intact ankle mortise. Assessment/Plan Assessment/Plan Acute left fibula shaft fracture. Old deformity of left lateral tibial plateau, consistent with osteoarthritis. Severe bilateral knee ostearthritis. Nonop treatment. CAM walker would likely be more comfortable than the current splint. I will order CAM walker. She may WBAT in the boot. MATTHEW LLAMAS MD Oct 19, 2018 19:09
[2018-10-19 19:20] VITALS: BP 150/81
[2018-10-19 23:24] VITALS: BP 132/73
[2018-10-20 03:19] VITALS: BP 146/73
[2018-10-20 04:53] LABS: BASO # 0.1 x10^3/uL (0.0-0.2); BASO % 1 % (0-3); EOS # 0.1 x10^3/uL (0.0-0.7); EOS % 2 % (0-3); HEMATOCRIT 31.6 % (36.0-47.0); HEMOGLOBIN 10.8 g/dL (12.0-15.5); LYMPH % 33 % (24-48); MEAN CORPUSCULAR HEMOGLOBIN 31 pg (25-35); MEAN CORPUSCULAR HGB CONC 34 g/dL (31-37); MEAN CORPUSCULAR VOLUME 89 fL (79-100); MONO # 0.7 x10^3/uL (0.0-1.1); MONO % 12 % (0-9); NEUT # 3.1 x10^3uL (1.8-7.7); NEUT % 52 % (31-73); PLATELET COUNT 323 x10^3/uL (140-400); RED BLOOD COUNT 3.53 x10^6/uL (3.50-5.40)
[2018-10-20 05:11] LABS: CALCIUM 8.8 mg/dL (8.5-10.1); GFR 52.3; POTASSIUM 3.5 mmol/L (3.5-5.1)
[2018-10-20] MEDS: LEVOTHYROXINE 100 MCG TABLET PO SCH (06:17)
[2018-10-20] MEDS: PANTOPRAZOLE 40 MG TABLET.DR. PO SCH (06:17)
[2018-10-20 07:00] VITALS: BP 122/87
[2018-10-20] MEDS: OMEGA-3 FATTY ACIDS/FISH OIL 1,000 MG CAPSULE. PO SCH (09:08)
[2018-10-20] MEDS: METOPROLOL TART IMMED RELEASE 25 MG TABLET. PO SCH ×2 (09:08→21:22)
[2018-10-20] MEDS: ASPIRIN CHEWABLE 81 MG TABLET. PO SCH (09:08)
[2018-10-20] MEDS: ALPRAZolam 0.5 MG TABLET PO SCH ×2 (09:10→21:22)
[2018-10-20] MEDS: FLUTICASONE 50MCG/NASAL SPRAY 16GM BOTTLE. NS SCH (09:13)
[2018-10-20 11:00] VITALS: BP 120/80
[2018-10-20] MEDS: ACETAMINOPHEN 500 MG TABLET PO PRN (11:10)
--- NOTE | 2018-10-20 11:39 | NUR ---
SW following. Discussed with RN, SARY met with pt to discuss discharge planning. Pt lives in a ranch style home alone, does all her own cooking and laundry and has a silverware cleaner come in twice a month, as well as someone to do her yard work. Pt uses a walker at home for balance and has a long grab bar in her shower, she still drives but not often - only to the bank and the pharmacy. Pt has children who are a great support to her and get pt's groceries. Pt reported she couldn't walk very well due to her foot and would like to go to care home facility if PT/OT recommends. Pt reported her mother had been at [facility] when it was [email or web address] and would like to go there too. SW awaiting PT/OT notes before sending referral. SARY will continue to follow.
--- NOTE | 2018-10-20 12:21 | PDOC ---
PROGRESS NOTES Chief Complaint Chief Complaint L Fibular Fracture History of Present Illness History of Present Illness The patient was seen sitting in her chair today. There were two loved ones present. She is doing well with no complaints. We discussed her options with mobility- trying a boot and CAM walker. Vitals Vitals Vital Signs Date Time Temp Pulse Resp B/P (MAP) Pulse Ox O2 Delivery O2 Flow Rate FiO2 10/20/18 11:00 99.0 72 18 120/80 (93) 96 Room Air 99.0 Physical Exam General: Alert, Oriented X3, Cooperative, No acute distress Heart: Regular rate, Normal S1, Normal S2, No murmurs Lungs: Clear (No wheezes, rales, or rhonchi) Abdomen: Soft, No tenderness, No masses Extremities: No edema, Normal pulses, Other (mild edema. splint on left leg. tenderness at mid fibula.) Skin: No rashes, No breakdown, No significant lesion Labs LABS Laboratory Tests Test 10/20/18 04:15 White Blood Count 6.0 x10^3/uL (4.0-11.0) Red Blood Count 3.53 x10^6/uL (3.50-5.40) Hemoglobin 10.8 g/dL (12.0-15.5) Hematocrit 31.6 % (36.0-47.0) Mean Corpuscular Volume 89 fL (79-100) Mean Corpuscular Hemoglobin 31 pg (25-35) Mean Corpuscular Hemoglobin Concent 34 g/dL (31-37) Red Cell Distribution Width 15.0 % (11.5-14.5) Platelet Count 323 x10^3/uL (140-400) Neutrophils (%) (Auto) 52 % (31-73) Lymphocytes (%) (Auto) 33 % (24-48) Monocytes (%) (Auto) 12 % (0-9) Eosinophils (%) (Auto) 2 % (0-3) Basophils (%) (Auto) 1 % (0-3) Neutrophils # (Auto) 3.1 x10^3uL (1.8-7.7) Lymphocytes # (Auto) 2.0 x10^3/uL (1.0-4.8) Monocytes # (Auto) 0.7 x10^3/uL (0.0-1.1) Eosinophils # (Auto) 0.1 x10^3/uL (0.0-0.7) Basophils # (Auto) 0.1 x10^3/uL (0.0-0.2) Sodium Level 138 mmol/L (136-145) Potassium Level 3.5 mmol/L (3.5-5.1) Chloride Level 101 mmol/L (98-107) Carbon Dioxide Level 28 mmol/L (21-32) Anion Gap 9 (6-14) Blood Urea Nitrogen 17 mg/dL (7-20) Creatinine 1.0 mg/dL (0.6-1.0) Estimated GFR (Cockcroft-Gault) 52.3 Glucose Level 99 mg/dL (70-99) Calcium Level 8.8 mg/dL (8.5-10.1) Review of Systems Review of Systems Patient denies fevers, chills, N/V, CP, SOB, diarrhea Assessment and Plan Assessmemt and Plan Problems Medical Problems: (1) Displaced transverse fracture of shaft of left fibula, initial encounter for closed fracture Status: Acute (2) Fibula fracture Status: Acute (3) Weakness Status: Acute Assessment: Fibular fracture acute onset-duration 7 days Possible osteoporosis Vit D deficiency (25.7) Multiple allergies Hypothyroidism on Synthroid GERD on PPI Dyslipidemia on statin Allergies on Flonase Hypertension on Cardizem Plan: Admit 1 more midnight 1000 Units Vit D3 PO Qday Consult Dr. Stark- enrique PT/OT DVT prophylaxis Continue home meds F/u labs SNU eval- DC tomorrow to [facility] Comment Review of Relevant I have reviewed the following items lubna (where applicable) has been applied. Labs Laboratory Tests Test 10/18/18 17:11 10/20/18 04:15 White Blood Count 8.2 x10^3/uL (4.0-11.0) 6.0 x10^3/uL (4.0-11.0) Red Blood Count 4.10 x10^6/uL (3.50-5.40) 3.53 x10^6/uL (3.50-5.40) Hemoglobin 12.0 g/dL (12.0-15.5) 10.8 g/dL (12.0-15.5) Hematocrit 36.4 % (36.0-47.0) 31.6 % (36.0-47.0) Mean Corpuscular Volume 89 fL (79-100) 89 fL (79-100) Mean Corpuscular Hemoglobin 29 pg (25-35) 31 pg (25-35) Mean Corpuscular Hemoglobin Concent 33 g/dL (31-37) 34 g/dL (31-37) Red Cell Distribution Width 15.0 % (11.5-14.5) 15.0 % (11.5-14.5) Platelet Count 409 x10^3/uL (140-400) 323 x10^3/uL (140-400) Neutrophils (%) (Auto) 62 % (31-73) 52 % (31-73) Lymphocytes (%) (Auto) 26 % (24-48) 33 % (24-48) Monocytes (%) (Auto) 11 % (0-9) 12 % (0-9) Eosinophils (%) (Auto) 0 % (0-3) 2 % (0-3) Basophils (%) (Auto) 1 % (0-3) 1 % (0-3) Neutrophils # (Auto) 5.1 x10^3uL (1.8-7.7) 3.1 x10^3uL (1.8-7.7) Lymphocytes # (Auto) 2.1 x10^3/uL (1.0-4.8) 2.0 x10^3/uL (1.0-4.8) Monocytes # (Auto) 0.9 x10^3/uL (0.0-1.1) 0.7 x10^3/uL (0.0-1.1) Eosinophils # (Auto) 0.0 x10^3/uL (0.0-0.7) 0.1 x10^3/uL (0.0-0.7) Basophils # (Auto) 0.1 x10^3/uL (0.0-0.2) 0.1 x10^3/uL (0.0-0.2) Prothrombin Time 12.4 SEC (11.7-14.0) Prothromb Time International Ratio 1.0 (0.8-1.1) Sodium Level 134 mmol/L (136-145) 138 mmol/L (136-145) Potassium Level 3.5 mmol/L (3.5-5.1) 3.5 mmol/L (3.5-5.1) Chloride Level 97 mmol/L (98-107) 101 mmol/L (98-107) Carbon Dioxide Level 27 mmol/L (21-32) 28 mmol/L (21-32) Anion Gap 10 (6-14) 9 (6-14) Blood Urea Nitrogen 18 mg/dL (7-20) 17 mg/dL (7-20) Creatinine 1.0 mg/dL (0.6-1.0) 1.0 mg/dL (0.6-1.0) Estimated GFR (Cockcroft-Gault) 52.3 52.3 BUN/Creatinine Ratio 18 (6-20) Glucose Level 119 mg/dL (70-99) 99 mg/dL (70-99) Calcium Level 9.5 mg/dL (8.5-10.1) 8.8 mg/dL (8.5-10.1) Total Bilirubin 0.4 mg/dL (0.2-1.0) Aspartate Amino Transf (AST/SGOT) 20 U/L (15-37) Alanine Aminotransferase (ALT/SGPT) 16 U/L (14-59) Alkaline Phosphatase 64 U/L (46-116) Total Protein 7.6 g/dL (6.4-8.2) Albumin 3.5 g/dL (3.4-5.0) Albumin/Globulin Ratio 0.9 (1.0-1.7) 25-Hydroxy Vitamin D Total 25.7 ng/mL (30-100) Laboratory Tests Test 10/20/18 04:15 White Blood Count 6.0 x10^3/uL (4.0-11.0) Red Blood Count 3.53 x10^6/uL (3.50-5.40) Hemoglobin 10.8 g/dL (12.0-15.5) Hematocrit 31.6 % (36.0-47.0) Mean Corpuscular Volume 89 fL (79-100) Mean Corpuscular Hemoglobin 31 pg (25-35) Mean Corpuscular Hemoglobin Concent 34 g/dL (31-37) Red Cell Distribution Width 15.0 % (11.5-14.5) Platelet Count 323 x10^3/uL (140-400) Neutrophils (%) (Auto) 52 % (31-73) Lymphocytes (%) (Auto) 33 % (24-48) Monocytes (%) (Auto) 12 % (0-9) Eosinophils (%) (Auto) 2 % (0-3) Basophils (%) (Auto) 1 % (0-3) Neutrophils # (Auto) 3.1 x10^3uL (1.8-7.7) Lymphocytes # (Auto) 2.0 x10^3/uL (1.0-4.8) Monocytes # (Auto) 0.7 x10^3/uL (0.0-1.1) Eosinophils # (Auto) 0.1 x10^3/uL (0.0-0.7) Basophils # (Auto) 0.1 x10^3/uL (0.0-0.2) Sodium Level 138 mmol/L (136-145) Potassium Level 3.5 mmol/L (3.5-5.1) Chloride Level 101 mmol/L (98-107) Carbon Dioxide Level 28 mmol/L (21-32) Anion Gap 9 (6-14) Blood Urea Nitrogen 17 mg/dL (7-20) Creatinine 1.0 mg/dL (0.6-1.0) Estimated GFR (Cockcroft-Gault) 52.3 Glucose Level 99 mg/dL (70-99) Calcium Level 8.8 mg/dL (8.5-10.1) Medications Current Medications Acetaminophen/ Hydrocodone Bitart (Lortab 5/325) 1 tab PRN Q4HRS PRN PO SEVERE PAIN; Start 10/18/18 at 17:15 Acetaminophen (Tylenol) 500 mg PRN Q6HRS PRN PO MILD PAIN / TEMP Last administered on 10/20/18at 11:10; Start 10/18/18 at 17:15 Acetaminophen/ Codeine Phosphate (Tylenol #3) 1 tab PRN Q6HRS PRN PO MODERATE PAIN; Start 10/18/18 at 17:15 Ondansetron HCl (Zofran) 4 mg PRN Q6HRS PRN IV NAUSEA/VOMITING; Start 10/18/18 at 17:15 Ondansetron HCl (Zofran Odt) 4 mg PRN Q6HRS PRN PO NAUSEA/VOMITING; Start 10/18/18 at 17:15 Acetaminophen (Tylenol) 325 mg PRN Q4HRS PRN PO MILD PAIN / TEMP; Start 10/18/18 at 17:30 Alprazolam (Xanax) 0.5 mg BID PO Last administered on 10/19/18at 21:28; Start 10/18/18 at 21:00 Aspirin (Children'S Aspirin) 81 mg DAILY PO Last administered on 10/20/18 09:08; Start 10/19/18 at 09:00 Levothyroxine Sodium (Synthroid) 100 mcg DAILY06 PO Last administered on 9at 06:17; Start 10/19/18 at 06:00 Metoprolol Tartrate (Lopressor) 25 mg BID PO Last administered on 10/20/18 09:08; Start 10/18/18 at 21:00 Diltiazem HCl (Cardizem 24hr Cd) 180 mg DAILY PO Last administered on 10/20/18at 09:08; Start 10/19/18 at 09:00 Non-Formulary Medication (Lovastatin ) 20 mg DAILY16 PO ; Start 10/19/18 at 16:00; Stop 10/19/18 at 16:24; Status DC Fish Oil (Fish Oil) 1,000 mg DAILY PO Last administered on 10/20/18 09:08; Start 10/19/18 at 09:00 Pantoprazole Sodium (Protonix) 40 mg DAILYAC PO Last administered on 10/20/18 06:17; Start 10/19/18 at 07:30 Fluticasone Propionate (Flonase) 2 spray DAILY NS Last administered on 10/19/18at 09:35; Start 10/19/18 at 09:00 Non-Formulary Medication (Lovastatin ) 20 mg QMWF PO ; Start 10/20/18 at 16:00 Active Scripts Active [place] 5-325 Tablet (Acetaminophen/Hydrocodone Bitart) 1 Each Tablet 1 Tab PO PRN Q8HRS PRN Metoprolol Tartrate 25 Mg Tablet 25 Mg PO BID 30 Days Reported Cardizem Cd (Diltiazem Hcl) 180 Mg Cap.er.24h 180 Mg PO DAILY Aspirin 81 Mg Tab.chew 1 Tab PO DAILY Xanax (Alprazolam) 0.5 Mg Tablet 1 Tab PO BID Tylenol (Acetaminophen) 325 Mg Tablet 1 Tab PO PRN Q4HRS Fish Oil 1,200 Mg Fish Oil (Fish Oil/Dha/Epa) 1 Each Capsule 1 Each PO Lovastatin 20 Mg Tablet 20 Mg PO DAILY16 Synthroid (Levothyroxine Sodium) 100 Mcg Tablet 100 Mcg PO Prilosec (Omeprazole) 40 Mg Capsule.dr 40 Mg PO Vitals/I & O Vital Sign - Last 24 Hours 10/19/18 10/19/18 10/19/18 10/19/18 15:00 19:20 20:20 21:28 Temp 98.3 98.5 98.3 98.5 Pulse 77 83 83 Resp 18 18 B/P (MAP) 155/75 (101) 150/81 (104) 150/81 Pulse Ox 92 94 O2 Delivery Room Air Room Air Room Air 10/19/18 10/20/18 10/20/18 10/20/18 23:24 03:19 07:00 09:08 Temp 98.4 98.4 98.3 98.4 98.4 98.3 Pulse 74 78 77 77 Resp 18 20 18 B/P (MAP) 132/73 (92) 146/73 (97) 122/87 (99) 122/87 Pulse Ox 94 94 95 O2 Delivery Room Air Room Air Room Air 10/20/18 10/20/18 09:08 11:00 Temp 99.0 99.0 Pulse 77 72 Resp 18 B/P (MAP) 122/87 120/80 (93) Pulse Ox 96 O2 Delivery Room Air Intake and Output 10/19/18 10/19/18 10/20/18 15:00 23:00 07:00 Intake Total 240 ml 360 ml Balance 240 ml 360 ml JAMES SHELTON III DO Oct 20, 2018 12:21
[2018-10-20 15:00] VITALS: BP 109/61
[2018-10-20] MEDS: CHOLECALCIFEROL (VITAMIN D3) 1,000 UNIT TABLET PO SCH (15:13)
[2018-10-20] MEDS ORDERED: LOVASTATIN 20 MG TABLET PO SCH (16:00)
--- NOTE | 2018-10-20 16:00 | NUR ---
ASSUMED PATIENT CARE AT THIS TIME, PATIENT HAS FAMILY MEMBERS AT THE BEDSIDE AND IS WITHOUT COMPLAINTS, WILL MONITOR.
[2018-10-20 19:00] VITALS: BP 146/69
[2018-10-20 23:00] VITALS: BP 121/77
[2018-10-21 03:00] VITALS: BP 127/56
[2018-10-21 04:16] LABS: BASO # 0.1 x10^3/uL (0.0-0.2); BASO % 1 % (0-3); EOS # 0.2 x10^3/uL (0.0-0.7); EOS % 3 % (0-3); HEMATOCRIT 31.6 % (36.0-47.0); HEMOGLOBIN 10.5 g/dL (12.0-15.5); LYMPH # 2.3 x10^3/uL (1.0-4.8); LYMPH % 36 % (24-48); MEAN CORPUSCULAR HEMOGLOBIN 30 pg (25-35); MEAN CORPUSCULAR HGB CONC 33 g/dL (31-37); MEAN CORPUSCULAR VOLUME 90 fL (79-100); MONO # 0.7 x10^3/uL (0.0-1.1); MONO % 11 % (0-9); NEUT # 3.2 x10^3uL (1.8-7.7); NEUT % 49 % (31-73); PLATELET COUNT 340 x10^3/uL (140-400); RED BLOOD COUNT 3.52 x10^6/uL (3.50-5.40); WHITE BLOOD COUNT 6.4 x10^3/uL (4.0-11.0)
[2018-10-21 04:39] LABS: CALCIUM 8.5 mg/dL (8.5-10.1); CREATININE 0.8 mg/dL (0.6-1.0); GFR 67.7; POTASSIUM 3.4 mmol/L (3.5-5.1)
[2018-10-21] MEDS: LEVOTHYROXINE 100 MCG TABLET PO SCH (06:08)
[2018-10-21 07:00] VITALS: BP 149/81
[2018-10-21] MEDS: OMEGA-3 FATTY ACIDS/FISH OIL 1,000 MG CAPSULE. PO SCH (08:43)
[2018-10-21] MEDS: PANTOPRAZOLE 40 MG TABLET.DR. PO SCH (08:43)
[2018-10-21] MEDS: ASPIRIN CHEWABLE 81 MG TABLET. PO SCH (08:44)
[2018-10-21] MEDS: METOPROLOL TART IMMED RELEASE 25 MG TABLET. PO SCH (08:45)
[2018-10-21] MEDS: FLUTICASONE 50MCG/NASAL SPRAY 16GM BOTTLE. NS SCH (08:45)
[2018-10-21] MEDS: CHOLECALCIFEROL (VITAMIN D3) 1,000 UNIT TABLET PO SCH (08:45)
--- NOTE | 2018-10-21 08:54 | SNU/HH DC ---
DISCHARGE ORDERS DISCHARGE INFORMATION: FINAL DIAGNOSIS Problems Medical Problems: (1) Displaced transverse fracture of shaft of left fibula, initial encounter for closed fracture Status: Acute (2) Fibula fracture Status: Acute (3) Weakness Status: Acute CONDITION ON DISCHARGE: Stable CODE STATUS: Code Status: Full PENITENTIARY: SNF STAY <30 DAYS: Yes HOSPICE: HOSPICE: No HOSPICE EVAL & TREAT: No LTAC: ADMIT TO LTAC: No POST DISCHARGE ORDERS: ACTIVITY ORDERS: Activity as tolerated WEIGHT BEARING STATUS: As tolerated DIET AFTER DISCHARGE: Cardiac CHECKS AFTER DISCHARGE: CHECKS AFTER DISCHARGE: Check blood press - daily TREATMENT/EQUIPMENT ORDERS: ADAPTIVE EQUIPMENT NEEDED: Walker Physical Therapy For: Evalulation/Treatment Occupational Therapy For: Evaluation/Treatment DISCHARGE MEDICATIONS: Home Meds Active Scripts Hydrocodone/Apap 5-325 (NORCO 5-325 TABLET) 1 Each Tablet, 1 TAB PO PRN Q8HRS PRN for PAIN, #20 TAB 0 Refills Prov:UTE WOOD MD 10/17/18 Metoprolol Tartrate (METOPROLOL TARTRATE) 25 Mg Tablet, 25 MG PO BID for 30 Days, #60 TAB Prov:GINGER ALBA MD 02/19/18 Reported Medications Diltiazem Hcl (CARDIZEM CD) 180 Mg Cap.er.24h, 180 MG PO DAILY for FOR HYPERTENSION, #30 CAP 0 Refills 02/18/18 Aspirin (ASPIRIN) 81 Mg Tab.chew, 1 TAB PO DAILY, #30 TAB 3 Refills 02/17/18 Alprazolam (XANAX) 0.5 Mg Tablet, 1 TAB PO BID, #60 TAB 02/17/18 Acetaminophen (TYLENOL) 325 Mg Tablet, 1 TAB PO PRN Q4HRS, #30 TAB 02/17/18 Fish Oil/Dha/Epa (FISH OIL 1,200 MG FISH OIL) 1 Each Capsule, 1 EACH PO 05/17/14 Lovastatin (LOVASTATIN) 20 Mg Tablet, 20 MG PO DAILY16 11/25/13 Levothyroxine Sodium (SYNTHROID) 100 Mcg Tablet, 100 MCG PO 11/25/13 Omeprazole (PRILOSEC) 40 Mg Capsule.dr, 40 MG PO 11/25/13 JAMES SHELTON III DO Oct 21, 2018 08:54
[2018-10-21] MEDS: ALPRAZolam 0.5 MG TABLET PO SCH (09:00)
--- NOTE | 2018-10-21 09:37 | PDOC ---
PROGRESS NOTES Chief Complaint Chief Complaint L Fibular Fracture History of Present Illness History of Present Illness The patient was seen sitting in her chair today. Her son was present in the room today. She is doing well with no complaints. She received a boot this morning. Discussed extensively with her son about with SNU she will be placed at. He prefers [facility]. We are working to get her a spot there. If it doesn't work out with them, she will go to [facility]. Vitals Vitals Vital Signs Date Time Temp Pulse Resp B/P (MAP) Pulse Ox O2 Delivery O2 Flow Rate FiO2 10/21/18 08:45 77 127/56 10/21/18 07:00 97.8 16 94 Room Air 97.8 Physical Exam General: Alert, Oriented X3, Cooperative, No acute distress Heart: Regular rate, Normal S1, Normal S2, No murmurs Lungs: Clear (No wheezes, rales, or rhonchi) Abdomen: Soft, No tenderness, No masses Extremities: No edema, Normal pulses, Other (mild edema. splint on left leg. tenderness at mid fibula.) Skin: No rashes, No breakdown, No significant lesion Labs LABS Laboratory Tests Test 10/21/18 03:25 White Blood Count 6.4 x10^3/uL (4.0-11.0) Red Blood Count 3.52 x10^6/uL (3.50-5.40) Hemoglobin 10.5 g/dL (12.0-15.5) Hematocrit 31.6 % (36.0-47.0) Mean Corpuscular Volume 90 fL (79-100) Mean Corpuscular Hemoglobin 30 pg (25-35) Mean Corpuscular Hemoglobin Concent 33 g/dL (31-37) Red Cell Distribution Width 15.0 % (11.5-14.5) Platelet Count 340 x10^3/uL (140-400) Neutrophils (%) (Auto) 49 % (31-73) Lymphocytes (%) (Auto) 36 % (24-48) Monocytes (%) (Auto) 11 % (0-9) Eosinophils (%) (Auto) 3 % (0-3) Basophils (%) (Auto) 1 % (0-3) Neutrophils # (Auto) 3.2 x10^3uL (1.8-7.7) Lymphocytes # (Auto) 2.3 x10^3/uL (1.0-4.8) Monocytes # (Auto) 0.7 x10^3/uL (0.0-1.1) Eosinophils # (Auto) 0.2 x10^3/uL (0.0-0.7) Basophils # (Auto) 0.1 x10^3/uL (0.0-0.2) Sodium Level 137 mmol/L (136-145) Potassium Level 3.4 mmol/L (3.5-5.1) Chloride Level 101 mmol/L (98-107) Carbon Dioxide Level 26 mmol/L (21-32) Anion Gap 10 (6-14) Blood Urea Nitrogen 18 mg/dL (7-20) Creatinine 0.8 mg/dL (0.6-1.0) Estimated GFR (Cockcroft-Gault) 67.7 Glucose Level 93 mg/dL (70-99) Calcium Level 8.5 mg/dL (8.5-10.1) Review of Systems Review of Systems Patient denies fevers, chills, N/V, CP, SOB, diarrhea. Assessment and Plan Assessmemt and Plan Problems Medical Problems: (1) Displaced transverse fracture of shaft of left fibula, initial encounter for closed fracture Status: Acute (2) Fibula fracture Status: Acute (3) Weakness Status: Acute Assessment: Fibular fracture acute onset-duration 7 days Possible osteoporosis Vit D deficiency (25.7) Multiple allergies Hypothyroidism on Synthroid GERD on PPI Dyslipidemia on statin Allergies on Flonase Hypertension on Cardizem Plan: No surgery 20 meq KCl PO (3.4) Scripts written for xanax and hydrocodone Consult Dr. Stark- ortho PT/OT DVT prophylaxis Continue home meds F/u labs DC today- hopefully to [facility], if not, [facility] Comment Review of Relevant I have reviewed the following items lubna (where applicable) has been applied. Labs Laboratory Tests Test 10/20/18 04:15 10/21/18 03:25 White Blood Count 6.0 x10^3/uL (4.0-11.0) 6.4 x10^3/uL (4.0-11.0) Red Blood Count 3.53 x10^6/uL (3.50-5.40) 3.52 x10^6/uL (3.50-5.40) Hemoglobin 10.8 g/dL (12.0-15.5) 10.5 g/dL (12.0-15.5) Hematocrit 31.6 % (36.0-47.0) 31.6 % (36.0-47.0) Mean Corpuscular Volume 89 fL (79-100) 90 fL (79-100) Mean Corpuscular Hemoglobin 31 pg (25-35) 30 pg (25-35) Mean Corpuscular Hemoglobin Concent 34 g/dL (31-37) 33 g/dL (31-37) Red Cell Distribution Width 15.0 % (11.5-14.5) 15.0 % (11.5-14.5) Platelet Count 323 x10^3/uL (140-400) 340 x10^3/uL (140-400) Neutrophils (%) (Auto) 52 % (31-73) 49 % (31-73) Lymphocytes (%) (Auto) 33 % (24-48) 36 % (24-48) Monocytes (%) (Auto) 12 % (0-9) 11 % (0-9) Eosinophils (%) (Auto) 2 % (0-3) 3 % (0-3) Basophils (%) (Auto) 1 % (0-3) 1 % (0-3) Neutrophils # (Auto) 3.1 x10^3uL (1.8-7.7) 3.2 x10^3uL (1.8-7.7) Lymphocytes # (Auto) 2.0 x10^3/uL (1.0-4.8) 2.3 x10^3/uL (1.0-4.8) Monocytes # (Auto) 0.7 x10^3/uL (0.0-1.1) 0.7 x10^3/uL (0.0-1.1) Eosinophils # (Auto) 0.1 x10^3/uL (0.0-0.7) 0.2 x10^3/uL (0.0-0.7) Basophils # (Auto) 0.1 x10^3/uL (0.0-0.2) 0.1 x10^3/uL (0.0-0.2) Sodium Level 138 mmol/L (136-145) 137 mmol/L (136-145) Potassium Level 3.5 mmol/L (3.5-5.1) 3.4 mmol/L (3.5-5.1) Chloride Level 101 mmol/L (98-107) 101 mmol/L (98-107) Carbon Dioxide Level 28 mmol/L (21-32) 26 mmol/L (21-32) Anion Gap 9 (6-14) 10 (6-14) Blood Urea Nitrogen 17 mg/dL (7-20) 18 mg/dL (7-20) Creatinine 1.0 mg/dL (0.6-1.0) 0.8 mg/dL (0.6-1.0) Estimated GFR (Cockcroft-Gault) 52.3 67.7 Glucose Level 99 mg/dL (70-99) 93 mg/dL (70-99) Calcium Level 8.8 mg/dL (8.5-10.1) 8.5 mg/dL (8.5-10.1) Laboratory Tests Test 10/21/18 03:25 White Blood Count 6.4 x10^3/uL (4.0-11.0) Red Blood Count 3.52 x10^6/uL (3.50-5.40) Hemoglobin 10.5 g/dL (12.0-15.5) Hematocrit 31.6 % (36.0-47.0) Mean Corpuscular Volume 90 fL (79-100) Mean Corpuscular Hemoglobin 30 pg (25-35) Mean Corpuscular Hemoglobin Concent 33 g/dL (31-37) Red Cell Distribution Width 15.0 % (11.5-14.5) Platelet Count 340 x10^3/uL (140-400) Neutrophils (%) (Auto) 49 % (31-73) Lymphocytes (%) (Auto) 36 % (24-48) Monocytes (%) (Auto) 11 % (0-9) Eosinophils (%) (Auto) 3 % (0-3) Basophils (%) (Auto) 1 % (0-3) Neutrophils # (Auto) 3.2 x10^3uL (1.8-7.7) Lymphocytes # (Auto) 2.3 x10^3/uL (1.0-4.8) Monocytes # (Auto) 0.7 x10^3/uL (0.0-1.1) Eosinophils # (Auto) 0.2 x10^3/uL (0.0-0.7) Basophils # (Auto) 0.1 x10^3/uL (0.0-0.2) Sodium Level 137 mmol/L (136-145) Potassium Level 3.4 mmol/L (3.5-5.1) Chloride Level 101 mmol/L (98-107) Carbon Dioxide Level 26 mmol/L (21-32) Anion Gap 10 (6-14) Blood Urea Nitrogen 18 mg/dL (7-20) Creatinine 0.8 mg/dL (0.6-1.0) Estimated GFR (Cockcroft-Gault) 67.7 Glucose Level 93 mg/dL (70-99) Calcium Level 8.5 mg/dL (8.5-10.1) Medications Current Medications Acetaminophen/ Hydrocodone Bitart (Lortab 5/325) 1 tab PRN Q4HRS PRN PO SEVERE PAIN; Start 10/18/18 at 17:15 Acetaminophen (Tylenol) 500 mg PRN Q6HRS PRN PO MILD PAIN / TEMP Last administered on 10/20/18at 11:10; Start 10/18/18 at 17:15 Acetaminophen/ Codeine Phosphate (Tylenol #3) 1 tab PRN Q6HRS PRN PO MODERATE PAIN; Start 10/18/18 at 17:15 Ondansetron HCl (Zofran) 4 mg PRN Q6HRS PRN IV NAUSEA/VOMITING; Start 10/18/18 at 17:15 Ondansetron HCl (Zofran Odt) 4 mg PRN Q6HRS PRN PO NAUSEA/VOMITING; Start 10/18/18 at 17:15 Acetaminophen (Tylenol) 325 mg PRN Q4HRS PRN PO MILD PAIN / TEMP Last administered on 10/21/18at 08:45; Start 10/18/18 at 17:30 Alprazolam (Xanax) 0.5 mg BID PO Last administered on 10/20/18at 21:22; Start 10/18/18 at 21:00 Aspirin (Children'S Aspirin) 81 mg DAILY PO Last administered on 10/21/18at 08:44; Start 10/19/18 at 09:00 Levothyroxine Sodium (Synthroid) 100 mcg DAILY06 PO Last administered on 10/21/18 06:08; Start 10/19/18 at 06:00 Metoprolol Tartrate (Lopressor) 25 mg BID PO Last administered on 10/21/18 08:45; Start 10/18/18 at 21:00 Diltiazem HCl (Cardizem 24hr Cd) 180 mg DAILY PO Last administered on 10/21/18 08:44; Start 10/19/18 at 09:00 Non-Formulary Medication (Lovastatin ) 20 mg DAILY16 PO ; Start 10/19/18 at 16:00; Stop 10/19/18 at 16:24; Status DC Fish Oil (Fish Oil) 1,000 mg DAILY PO Last administered on 10/21/18 08:43; Start 10/19/18 at 09:00 Pantoprazole Sodium (Protonix) 40 mg DAILYAC PO Last administered on 10/21/18 08:43; Start 10/19/18 at 07:30 Fluticasone Propionate (Flonase) 2 spray DAILY NS Last administered on 10/21/18 08:45; Start 10/19/18 at 09:00 Non-Formulary Medication (Lovastatin ) 20 mg QMWF PO Last administered on 10/20/18 17:19; Start 10/20/18 at 16:00 Vitamin D (Vitamin D3) 1,000 unit DAILY PO Last administered on 10/21/18 08:45; Start 10/20/18 at 13:00 Active Scripts Active [place] 5-325 Tablet (Acetaminophen/Hydrocodone Bitart) 1 Each Tablet 1 Tab PO PRN Q8HRS PRN Metoprolol Tartrate 25 Mg Tablet 25 Mg PO BID 30 Days Reported Cardizem Cd (Diltiazem Hcl) 180 Mg Cap.er.24h 180 Mg PO DAILY Aspirin 81 Mg Tab.chew 1 Tab PO DAILY Xanax (Alprazolam) 0.5 Mg Tablet 1 Tab PO BID Tylenol (Acetaminophen) 325 Mg Tablet 1 Tab PO PRN Q4HRS Fish Oil 1,200 Mg Fish Oil (Fish Oil/Dha/Epa) 1 Each Capsule 1 Each PO Lovastatin 20 Mg Tablet 20 Mg PO DAILY16 Synthroid (Levothyroxine Sodium) 100 Mcg Tablet 100 Mcg PO Prilosec (Omeprazole) 40 Mg Capsule.dr 40 Mg PO Vitals/I & O Vital Sign - Last 24 Hours 10/20/18 10/20/18 10/20/18 10/20/18 11:00 15:00 19:00 19:40 Temp 99.0 97.3 97.7 99.0 97.3 97.7 Pulse 72 69 75 Resp 18 18 16 B/P (MAP) 120/80 (93) 109/61 (77) 146/69 (94) Pulse Ox 96 95 96 O2 Delivery Room Air Room Air Room Air Room Air 10/20/18 10/20/18 10/21/18 10/21/18 21:22 23:00 03:00 07:00 Temp 97.9 98.9 97.8 97.9 98.9 97.8 Pulse 75 71 77 84 Resp 18 18 16 B/P (MAP) 146/69 121/77 (92) 127/56 (79) 149/81 (103) Pulse Ox 94 96 94 O2 Delivery Room Air Room Air Room Air 10/21/18 10/21/18 08:44 08:45 Pulse 77 77 B/P (MAP) 127/56 127/56 Intake and Output 10/20/18 10/20/18 10/21/18 15:00 23:00 07:00 Intake Total 440 ml 240 ml 200 ml Output Total 100 ml Balance 440 ml 240 ml 100 ml JAMES SHELTON III DO Oct 21, 2018 09:37
[2018-10-21] MEDS ORDERED: POTASSIUM CHLORIDE 20 MEQ TABLET.ER. PO ONE (09:45)
--- NOTE | 2018-10-21 10:50 | NUR ---
SW following. Discussed with RN, pt's family wanting pt to go to [facility]. [facility] has accepted, transportation set up for noon today.
[2018-10-21 11:00] VITALS: BP 102/72
--- NOTE | 2018-10-21 13:55 | DS ---
DATE OF DISCHARGE: 10/21/2018 ADMISSION DIAGNOSES: Fall with left tibia fracture, osteoporosis. DISCHARGE DIAGNOSES: 1. Resolving tibia fracture (she did not require any surgery). 2. Hypothyroidism. 3. Gastroesophageal reflux disease. 4. Hyperlipidemia. 5. Allergic rhinitis. 6. Hypertension. 7. Osteoporosis. CONSULTS: Dr. Cooley. PROCEDURES: None. HOSPITAL COURSE: The patient is a pleasant elderly female who fell. She suffered a proximal tibial plateau fracture. She was admitted. We consulted Orthopedics. No surgery was required. We did physical therapy and occupational therapy and pain meds. This morning, she was doing well. PHYSICAL EXAMINATION: I examined her. HEART: Tones were normal. LUNGS: Clear. EXTREMITIES: Trace edema. SKIN: No rashes. We plan to discharge to skilled. DISPOSITION: Skilled. ACTIVITY: As tolerated. DIET: Low sodium. MEDICATIONS: Please see the MRAD. TOTAL TIME: 31 minutes. JAMES SHELTON DO DR: JENNIFER/bruna JOB#: [id number] / [id number]
--- NOTE | 2018-10-21 13:55 | NUR ---
Pt was given discharge information and follow up info. Pt will be transferring to [facility] for rehab, all paperwork sent with transportation to facility and faxed by SW. Pt is alertx4. Stable. No IV, NO TEle. Family at bedside. All belongings left with pt at time of discharge. Pt will follow up with Ortho as needed to repeat xrays. Pt left at 1200, escorted via wheelchair to [facility].
== END 2018-10-21 12:00 | DRG 543 ==
LOC: ER 16:35 → 4 NORTH 17:15
PROVIDERS: ADMIT Internal Medicine; ATTEND Internal Medicine
DX: M80.862A Other osteoporosis with current pathological fracture, left lower leg, initial encounter for fracture (principal); R71.0 Precipitous drop in hematocrit; E03.9 Hypothyroidism, unspecified; K21.9 Gastro-esophageal reflux disease without esophagitis; E78.5 Hyperlipidemia, unspecified; Z60.2 Problems related to living alone; J30.9 Allergic rhinitis, unspecified; I10 Essential (primary) hypertension; F41.9 Anxiety disorder, unspecified; M19.90 Unspecified osteoarthritis, unspecified site; E78.00 Pure hypercholesterolemia, unspecified; W19.XXXA Unspecified fall, initial encounter; Z88.8 Allergy status to other drugs, medicaments and biological substances; Y93.89 Activity, other specified; Y92.89 Other specified places as the place of occurrence of the external cause; Y99.8 Other external cause status; Z90.710 Acquired absence of both cervix and uterus; Z88.0 Allergy status to penicillin; Z82.49 Family history of ischemic heart disease and other diseases of the circulatory system
CPT/HCPCS: 36415; 73562; 73610; 80048; 80053; 82306; 85025; 85610; 93971; 97116; 97535; 99285-25

== ENCOUNTER → 2019-02-09 | Outpatient (CLI) | payer MEDICARE ==
[2018-12-29 10:55] VITALS: BP 130/64
[~2019-02-09] MED LIST changes: +FLUT9.9S NS
--- NOTE | 2019-02-09 16:15 | RAD ---
Indications: Pain. COMPARISON: December 16, 2018. The left ankle study: Again seen is a displaced fracture of the distal shaft left fibula. Healing callus formation is seen completely bridging the fracture but the fracture is not fully healed. Generalized disuse osteopenia is seen. No lytic process is evident. There is a nondisplaced oblique fracture of the proximal to midshaft of the left tibia which appears new. There is healing callus formation medially. Periosteal reaction is evident as well. Three-view left knee study: There is depression of the lateral tibial plateau consistent with an old fracture. This was seen previously. There is density of the lateral aspect of the tibiofemoral joint compartment which could represent a loose body. 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 No significant left knee joint effusion is seen. 2 view left hip study: No acute fracture or dislocation or lytic process is evident. No significant arthritic change is seen. IMPRESSION: New finding of a nondisplaced subacute fracture of the proximal to midshaft of the left tibia with periosteal reaction and healing callus formation. Healing fracture of the distal left fibula. Old appearing fracture or depression of the lateral tibial plateau. Possible loose body. Electronically signed by: Wilber Pham MD (02/09/2019 4:12 PM) [facility]
== END | disposition home or self-care (01) ==
LOC: RAD 12:12
PROVIDERS: ATTEND Orthopaedic Surgery
DX: S82.235A Nondisplaced oblique fracture of shaft of left tibia, initial encounter for closed fracture (principal); S82.425D Nondisplaced transverse fracture of shaft of left fibula, subsequent encounter for closed fracture with routine healing; M85.872 Other specified disorders of bone density and structure, left ankle and foot; X58.XXXA Exposure to other specified factors, initial encounter; Y93.89 Activity, other specified; Y92.89 Other specified places as the place of occurrence of the external cause; Y99.8 Other external cause status
CPT/HCPCS: 73502; 73562; 73610

== ENCOUNTER 2019-03-15 05:56 | Inpatient (IN) | payer MEDICARE ==
[~2019-03-15] VITALS: Ht 154.9 cm; Wt 60.8 kg
[2019-03-15] VITALS (9 sets, daily range): BP systolic 107–137; BP diastolic 67–98
[~2019-03-15 05:56] MED LIST changes: +TAPE50TA10 PO
[2019-03-15] MEDS ORDERED: MORPHINE SULFATE 5 MG, KETOROLAC 30MG VIAL 30 MG, ROPIVacaine 0.5% PF 60 ML, EPINEPHrin... INT ART ONE ×5 (06:00)
[2019-03-15] MEDS ORDERED: MORPHINE SULFATE 2 MG/ML VIAL. IV PRN ×2 (07:00→10:45)
[2019-03-15] MEDS ORDERED: IV RINGERS,LACTATED 1000ML 1,000 ML IV SCH (07:00)
[2019-03-15] MEDS ORDERED: fentaNYL PF VIAL 100 MCG/2 ML VIAL IV PRN ×3 (07:00→10:45)
[2019-03-15] MEDS ORDERED: ONDANSETRON PF 4 MG/2 ML VIAL. IV PRN (07:00)
[2019-03-15] MEDS ORDERED: PROCHLORPERAZINE 10 MG/2 ML VIAL. IV PRN (07:00)
[2019-03-15] MEDS ORDERED: HYDROmorphone 2 MG/ML VIAL IV PRN (07:00)
[2019-03-15] MEDS ORDERED: ONDANSETRON PF 4 MG/2 ML VIAL. ONE (07:11)
[2019-03-15] MEDS ORDERED: PROPOFOL 20 ML IV ONE (07:11)
[2019-03-15] MEDS ORDERED: DEXAMETHASONE SOD PHOS 4 MG/ML VIAL ONE (07:11)
[2019-03-15] MEDS ORDERED: fentaNYL PF VIAL 100 MCG/2 ML VIAL ONE (07:11)
[2019-03-15] MEDS ORDERED: LIDOCAINE 2% PF 5 ML VIAL. ONE (07:11)
[2019-03-15 07:19] LABS: PROTHROMBIN TIME PATIENT 13.2 SEC (11.7-14.0)
[2019-03-15] MEDS ORDERED: ROCURONIUM 50 MG/5 ML VIAL. ONE (07:24)
[2019-03-15] MEDS ORDERED: SUCCINYLCHOLINE 200 MG/10 ML VIAL. ONE (07:25)
[2019-03-15] MEDS ORDERED: FAMOTIDINE 20 MG/2 ML VIAL ONE (08:08)
--- NOTE | 2019-03-15 09:19 | HP ---
ADMIT DATE: 03/15/2019 CHIEF COMPLAINT: Multiple left tibia and fibula fractures. HISTORY OF PRESENT ILLNESS: The patient is an 88-year-old female who was treated nonoperatively for a minimally displaced lateral tibial plateau fracture. She was treated with bracing and eventually progressed in terms of weightbearing; however, in fact had a nonhealing and developed a valgus deformity. She continued bracing, but then developed pain corresponding to a tibial shaft fracture at the junction of the proximal and middle thirds and I went over with her with both conditions, the combination especially with nonhealing and a significant valgus due to collapse of the lateral tibial plateau. Really the only satisfactory solution is a total knee arthroplasty that is stemmed going across the tibial shaft fracture and potentially some buildups, wedges on the proximal lateral portion as well. She had undergone medical workup preoperatively. PAST MEDICAL HISTORY: Includes hypertension, hyperlipidemia, hypothyroidism and heart palpitations. PAST SURGICAL HISTORY: Hysterectomy, appendectomy and pelvic floor surgeries. FAMILY HISTORY: Heart attack in both mother and father, colon cancer in her father. SOCIAL HISTORY: Denies smoking, alcohol or drug use. She is , has good family support by her son is present today. MEDICATIONS: List is reviewed. ALLERGIES: MULTIPLE INCLUDING LEXAPRO, LIPITOR, ATENOLOL, AUGMENTIN, BAYCOL, ZOLOFT, TOPROL-XL, ALTACE, CRESTOR, PREDNISOLONE, COREG, VERAPAMIL, CELEXA, BENICAR, NORVASC, AND LEVOFLOXACIN. REVIEW OF SYSTEMS: She has severe difficulties bearing weight due to her severe deformity and pain due to the nonhealed tibial plateau fracture and shaft fractures. PHYSICAL EXAMINATION: VITAL SIGNS: Per admission sheet. HEENT: Atraumatic, normocephalic. HEART: Regular rate and rhythm. LUNGS: Clear to auscultation bilaterally. ABDOMEN: Benign. EXTREMITIES: Examination of the left lower extremity reveals severe valgus deformity with gross instability, as a result tenderness over the tibial shaft. She has normal alignment, stability of bilateral hips and ankles and normal right knee. IMAGING: X-rays show collapse of the lateral tibial plateau, severe degenerative changes throughout the knee. Otherwise, a small nondisplaced crack about the third of the way down the tibial shaft and progressive healing of a distal fibular shaft fracture. IMPRESSION: 1. Nonhealing with severe collapse, lateral tibial plateau fracture. 2. Tibial shaft fracture. 3. Severe tricompartmental degenerative changes, left knee with valgus instability due to unstable fractures. TREATMENT PLAN: We had previously discussed really the only viable treatment alternative is a stemmed tibial component with a total knee arthroplasty that would correct the deformity and allow her weightbearing and function. We had gone through risks, benefits, postoperative course, the possibility of infection, nerve or blood vessel damage, premature wear or loosening, medical or other anesthetic complications. All her questions were answered. She wishes to proceed with surgical evaluation and treatment, which will include [facility] admission to follow. ROSITA FELICIANO MD DR: SHAINA/nts JOB#: [id number] / [id number]
[2019-03-15] MEDS ORDERED: VANCOMYCIN 10GM VIAL for OR. ONE (09:31)
[2019-03-15] MEDS ORDERED: VANCOMYCIN 1 GM VIAL. ONE (09:32)
[2019-03-15] MEDS ORDERED: ePHEDrine PF IN SALINE 50 MG/10 ML SYRINGE. IV ONE (09:34)
[2019-03-15] MEDS ORDERED: NEOSTIGMINE METHYLSULFATE 5 MG/5 ML SYRINGE. ONE (09:35)
[2019-03-15] MEDS ORDERED: SEVOFLURANE 61 TO 120 MINUTES. IH ONE (09:35)
[2019-03-15] MEDS ORDERED: GLYCOPYRROLATE 1 MG/5 ML VIAL. ONE (09:35)
[2019-03-15] MEDS ORDERED: SEVOFLURANE > 120 MINUTES. IH ONE (10:11)
[2019-03-15] MEDS ORDERED: oxyCODONE IR 5 MG TABLET PO PRN (10:45)
[2019-03-15] MEDS ORDERED: PROCHLORPERAZINE 5 MG TABLET. PO PRN (10:45)
[2019-03-15] MEDS ORDERED: DEXTROSE 50% 25 GM / 50ML DISP.SYRIN. IV PRN (10:45)
[2019-03-15] MEDS ORDERED: IV DEXTROSE 5% 250 ML BAG. IV PRN (10:45)
[2019-03-15] MEDS ORDERED: diphenhydrAMINE 50 MG/ML VIAL IV PRN (10:45)
[2019-03-15] MEDS ORDERED: 0.9 % SODIUM CHLORIDE 10 ML DISP.SYRIN. IV PRN (10:45)
--- NOTE | 2019-03-15 11:35 | NUR ---
Arrived to unit by bed from PACU. Awake c/o soreness to left knee. Dressing on left leg is d/i with Hemovac drain. Able to wiggle toes easily, warm touch and pedal pulses + bilaterally. RAYNA/SCD on right leg and NICOLAS on left foot. IVF's intact and infusing. O2 at 2l per n/c. Oriented to room and controls. Side rails up x's 2 with call light in reach. Family at bedside.
--- NOTE | 2019-03-15 11:44 | RAD ---
EXAM: AP and lateral views of the left knee AP and lateral views of the left tibia/fibula DATE: 03/15/2019 10:42 AM INDICATION: Postop, left knee fracture COMPARISON: No Prior FINDINGS: Changes of left total knee arthroplasty are now seen, in good alignment without definite hardware complication or fracture. Expected postoperative soft tissue changes are seen. Proximal tibial fracture is in near-anatomic alignment. Subtle periosteal reaction/callus formation suggesting progressive healing. Distal fibular shaft fracture is also stable alignment. Metallic density projects over the medial malleolus. Vascular calcifications are seen. IMPRESSION: 1. Left total knee arthroplasty, in good alignment without definite hardware complication. 2. Personally healing proximal tibial fracture is in near-anatomic alignment. 3. Distal fibular fracture is also subacute with callus formation. Electronically signed by: Daryl Choi MD (03/15/2019 11:41 AM) [facility]
[2019-03-15] MEDS: MULTIVITAMIN with MINERAL TABLET. PO SCH (12:00)
[2019-03-15] MEDS ORDERED: FLU VAX QS 2019-20 (36MOS+)/PF 0.5 ML SYRINGE. VAX IM ONE (12:45)
[2019-03-15] MEDS: ceFAZolin SODIUM IV Push 1 GM VIAL. IVP SCH ×2 (13:36→20:00)
--- NOTE | 2019-03-15 13:40 | NUR ---
C/O nausea. Took couple bites of grill cheese and some tomato soup. Zofran IV given. Family at bedside. Cont. monitor.
[2019-03-15] MEDS: IV NORMAL SALINE 1000ML BAG 1,000 ML IV SCH ×2 (13:41→20:00)
--- NOTE | 2019-03-15 13:49 | PDOC4 ---
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 Estimated blood loss: 50 mL Complications: None Specimens: Cartilage surfaces to pathology Tourniquet time: 102 minutes Operative indications: Patient is an 88-year-old female admitted to the hospital and treated nonoperatively with a lateral tibial plateau fracture that went on to nonunion and collapse. She was placed in a brace in the interim and developed a nondisplaced tibial shaft fracture and I had discussed with her and her family the only reasonable alternative to treat this due to her severe instability and the leg and tricompartmental degenerative changes pre-existing and the knee of a long stemmed tibial component with augmentation. We talked about the possibility of infection nerve or blood vessel damage continued weakness medical or other anesthetic complications among others all her questions were answered and she wishes to proceed with surgical evaluation and treatment. Operative text: Patient was identified procedure verified patient placed in the supine position on the operating table. After adequate amounts of general anesthesia were administered the left lower extremity was prepped and draped in standard sterile fashion with a thigh tourniquet. She was noted to have gross lateral instability due to the lateral tibial plateau collapse and after timeout was performed patient procedure identified and verified the left lower extremity was exsanguinated by Esmarch bandage tourniquet inflated to 300 mmHg a midline incision was made medial parapatellar approach fat pad was excised distal femur was drilled for the intramedullary cutting guide initially cut was made in a standard position size 4 cutting block was selected and AP lateral chamfer cuts were made. Tibial cut was prepared with an intramedullary cutting guide reaming up to a size 13 to about a 220 mm depth and initially the medial cut was made and lateral cut was made with the Legion revision cutting guides and a lateral tibial wedge cut was made of 10 mm to account for the severe bony deficit. There was very slight additional bony deficit present posterior medially however this did not warrant additional bony resection. Trialing was carried out with the a ssembled tibial trial components and she was not able to obtain full extension although flexion gaps were satisfactory. An additional or millimeters was resected from the distal femur and chamfer cuts were repeated and trial fitting with a posterior stabilized femoral trial with a 9 mm articular insert which gave excellent stability patella was resurfaced with a biconvex 26 mm patellar component trial excellent tracking was noted and stability throughout range of motion and her deformity was corrected. Trial components were removed thorough irrigation carried out normal saline solution and a size 3 Legion revision tibial baseplate with a 13 x 220 mm press-fit stem and a lateral 10 mm tibial wedge were assembled. The tibial construct was then cemented in place with polymethylmethacrylate cement and a size 4 bicruciate stabilized Oxinium journey 2 femoral component was impacted with polymethylmethacrylate cement a 26 mm by convex to tolerate component with the 9 mm trial insert. Knee was held in extension after excess cement was removed and again excellent stability and tracking was verified trial component was removed thorough irrigation carried out normal saline solution and a 9 mm journey 2 articular insert was inserted. Hemovac drain and pain catheter were placed pain catheter mixture was injected throughout the knee joint 1 g of vancomycin powder was pedicled throughout the joint capsule retinaculum was closed with Ethibond suture #5 in an interrupted fashion and reinforced with #1 PDS strata fix suture subcutaneous closure with buried Vicryl suture skin closure with subcuticular Monocryl strata fix and a darin drain with Acticoat was placed patient was returned to recovery room in stable condition having tolerated the procedure well. Seven casey'seth was present for the procedure assisted in the prepping draping retraction component placement and skin closure ROSITA FELICIANO MD Mar 15, 2019 13:49
--- NOTE | 2019-03-15 14:40 | NUR ---
Resting quietly with eyes closed. Daughter in chair resting. Cont. monitor.
[2019-03-15] MEDS ORDERED: WARFARIN 7.5 MG TABLET. PO ONE (16:00)
[2019-03-15] MEDS: FERROUS SULFATE 325 MG TABLET. PO SCH (17:00)
--- NOTE | 2019-03-15 17:00 | NUR ---
Refused dinner. Still feeling queazy. Ambulated to bathroom to void. Up in chair with cold wash cloth over forehead. Call light in reach. Taking sips H2O. Cont. monitor.
[2019-03-15] MEDS: KETOROLAC 30MG VIAL 30 MG, BUPIVACAINE MPF 0.25% 20 ML, EPINEPHrine 0.5 MG in TOTAL VOL... INT ART SCH (18:22)
--- NOTE | 2019-03-15 18:40 | NUR ---
Resting with eyes closed. Feet elevated in chair. Cont. monitor.
[2019-03-15] MEDS: ACETAMINOPHEN 500 MG TABLET PO SCH (21:36)
[2019-03-16] MEDS: ceFAZolin SODIUM IV Push 1 GM VIAL. IVP SCH (02:27)
[2019-03-16] MEDS: KETOROLAC 30MG VIAL 30 MG, BUPIVACAINE MPF 0.25% 20 ML, EPINEPHrine 0.5 MG in TOTAL VOL... INT ART SCH ×2 (05:19→06:00)
[2019-03-16] MEDS: ACETAMINOPHEN 500 MG TABLET PO SCH ×3 (05:34→17:29)
[2019-03-16] MEDS ORDERED: MAGNESIUM HYDROXIDE 2,400 MG/30 ML ORAL.SUSP. PO PRN (06:00)
[2019-03-16 06:24] VITALS: BP 108/70
--- NOTE | 2019-03-16 07:04 | NUR ---
IAC occluded and med not infused. Patient slept well but believes otherwise.
[2019-03-16 07:23] LABS: PROTHROMBIN TIME PATIENT 19.1 SEC (11.7-14.0)
--- NOTE | 2019-03-16 07:34 | PDOC ---
ORTHO PROGRESS NOTES Subjective Patient anxious this morning and having nausea. Post-op Day: 1 Procedure L TKA Vitals Vital Signs Date Time Temp Pulse Resp B/P (MAP) Pulse Ox O2 Delivery O2 Flow Rate FiO2 03/16/19 06:24 98.4 102 24 108/70 (83) 96 Room Air 98.4 03/15/19 15:02 1.0 Labs Laboratory Tests Test 03/15/19 06:45 Prothrombin Time 13.2 SEC (11.7-14.0) Prothromb Time International Ratio 1.0 (0.8-1.1) Activated Partial Thromboplast Time 32 SEC (24-38) Albumin 3.5 g/dL (3.4-5.0) Notes awake and alert anxious Assessment and Plan POD # 1 S/P L TKA motor and sensory intact distally moving toes and foot without restriction dressing dry and intact PT today REDDY SHANKAR APRN Mar 16, 2019 07:34
[2019-03-16] MEDS: FERROUS SULFATE 325 MG TABLET. PO SCH ×2 (08:00→15:33)
[2019-03-16] MEDS: FLUTICASONE 50MCG/NASAL SPRAY 16GM BOTTLE. NS SCH (08:31)
[2019-03-16] MEDS: METOPROLOL TART IMMED RELEASE 25 MG TABLET. PO SCH ×2 (08:31→21:00)
[2019-03-16] MEDS: MULTIVITAMIN with MINERAL TABLET. PO SCH (08:31)
[2019-03-16] MEDS: ALPRAZolam 0.5 MG TABLET PO SCH ×2 (08:31→21:12)
[2019-03-16] MEDS ORDERED: ACETAMINOPHEN 500 MG TABLET PO SCH (09:00)
--- NOTE | 2019-03-16 11:04 | NUR ---
Pharmacy Warfarin Dosing Note S:Pharmacy consulted to assist with anticoagulation therapy started 03/15/19 with target INR: 1.6 - 2.5 O:GI HERNANDEZ is a 88 year old F with TKA Tibial fracture. LABS: Last INR: 1.6 Last HGB: Last HCT: Last PLT: Last dose of 7.5 mg given on 03/15/19 at 1959 Previous Regimen: Vitamin K given: N Drug Interaction Changes: Ongoing Drug Interactions: A:INR of 1.6 is within desired range. Target range for this patient is: 1.6 - 2.5 P: Warfarin dose: 2 mg Today at 1600 Bridge Therapy: None Next INR due tomorrow. Pharmacy anticoagulation service will continue to follow. Rodrick Chatman [facility], 03/16/19 [id number]
--- NOTE | 2019-03-16 15:43 | NUR ---
Patient IAC and hemovac were discontinued after the ELVIN bandage was removed on her right knee. Foam dressings over old IAC and hemovac sites. SERGEY dressing intact and functioning properly. Roughly 75% of the dressing is covered in dried/old blood towards the bottom of the dressing. Other nurse on the floor verified with this nurse to keep it intact at this time and to monitor for more drainage. Family aware and at bedside. Will continue to monitor.
[2019-03-16] MEDS ORDERED: WARFARIN 2 MG TABLET. PO ONE (16:00)
[2019-03-16] MEDS ORDERED: BISACODYL 10 MG SUPP.RECT. PR PRN (16:00)
[2019-03-16] MEDS ORDERED: NON FORMULARY ITEM (Lovastatin 20 MG) PO SCH (16:00)
[2019-03-16 17:37] VITALS: BP 118/62
[2019-03-16 21:00] VITALS: BP 93/62
[2019-03-17] MEDS: ACETAMINOPHEN 500 MG TABLET PO SCH ×5 (00:03→23:29)
[2019-03-17 04:45] LABS: HEMATOCRIT 23.3 % (36.0-47.0)
[2019-03-17 05:50] VITALS: BP 102/53
[2019-03-17] MEDS: FERROUS SULFATE 325 MG TABLET. PO SCH ×2 (08:00→16:02)
[2019-03-17 08:05] VITALS: BP 103/65
[2019-03-17] MEDS: MULTIVITAMIN with MINERAL TABLET. PO SCH (08:06)
[2019-03-17] MEDS: ALPRAZolam 0.5 MG TABLET PO SCH ×2 (08:07→21:17)
[2019-03-17] MEDS: METOPROLOL TART IMMED RELEASE 25 MG TABLET. PO SCH ×2 (08:07→21:18)
[2019-03-17] MEDS: FLUTICASONE 50MCG/NASAL SPRAY 16GM BOTTLE. NS SCH (08:11)
--- NOTE | 2019-03-17 12:38 | NUR ---
Pharmacy Warfarin Dosing Note S:Pharmacy consulted to assist with anticoagulation therapy started 03/15/19 with target INR: 1.6 - 2.5 O:GI HERNANDEZ is a 88 year old F with TKA Tibial fracture. LABS: Last INR: 3.2 Last HGB: 8.0 Last HCT: 23.3 Last PLT: Last dose of 2 mg given on 03/16/19 at 1959 Previous Regimen: Vitamin K given: N Drug Interaction Changes: Ongoing Drug Interactions: A:INR of 3.2 is above desired range. Target range for this patient is: 1.6 - 2.5 P: Warfarin dose: Hold Today at 1600 Bridge Therapy: None Next INR due IN AM Pharmacy anticoagulation service will continue to follow. [facility], 03/17/19 [id number]
[2019-03-17 14:48] VITALS: BP 118/69
[2019-03-17 17:34] VITALS: BP 95/55
--- NOTE | 2019-03-17 20:10 | NUR ---
Patient transferred by bed to room 456 with all belongings and verified with Patient's /daughter (Jessie) that all belongings with Patient. Patient transferred to room 456 to allow for closer monitoring and going home for night. Patient watching TV and call light in reach.
[2019-03-18 05:26] LABS: HEMATOCRIT 21.6 % (36.0-47.0); HEMOGLOBIN 7.4 g/dL (12.0-15.5)
[2019-03-18 05:48] LABS: PROTHROMBIN TIME PATIENT 31.2 SEC (11.7-14.0)
[2019-03-18 06:00] VITALS: BP 126/71
[2019-03-18] MEDS: ACETAMINOPHEN 500 MG TABLET PO SCH ×2 (06:23→11:47)
[2019-03-18] MEDS: FERROUS SULFATE 325 MG TABLET. PO SCH ×2 (08:00→11:46)
[2019-03-18 08:08] VITALS: BP 96/67
[2019-03-18 08:09] VITALS: BP 96/67
[2019-03-18] MEDS: METOPROLOL TART IMMED RELEASE 25 MG TABLET. PO SCH (08:09)
[2019-03-18] MEDS: MULTIVITAMIN with MINERAL TABLET. PO SCH (08:10)
[2019-03-18] MEDS: FLUTICASONE 50MCG/NASAL SPRAY 16GM BOTTLE. NS SCH (08:10)
[2019-03-18] MEDS: ALPRAZolam 0.5 MG TABLET PO SCH (08:10)
--- NOTE | 2019-03-18 09:07 | PATHOLOGY ---
[facility] Accession Number: [id number] . 01 Material submitted: . knee - LEFT KNEE BONE AND TISSUE. Modifiers: left . 01 Clinical history: . Non displaced transverse fracture shaft left fibula . 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 - Portions of synovium with focal mild chronic inflammation. (SKM/db; 03/17/2019) LBQ 03/17/2019 1518 Local . 02 Electronically signed: . German Palacio MD, Pathologist NPI- [id number] . 01 Gross description: . Received in formalin labeled "Carmelina Tolentino, left knee bone and tissue," are multiple segments of bone, including fragmented tibial plateau, measuring 12.8 x 10.2 x 1.7 cm in aggregate dimensions. The bone margins are flat and pale yellow-acuna in appearance, grossly consistent with transection; evidence of fracture is not identified grossly. Soft tissue and meniscus are present. The specimen displays extensive eburnation of the articular surfaces. Osteophytic lipping is noted at the peripheral articular surfaces. Colleter bone and soft tissue are submitted in cassette A1, following decalcification. (DAC; 03/16/2019) XDC/XDC 03/16/2019 0720 Local . 02 Pathologist provided ICD-10: M17.12, M65.9 . 02 CPT . 467959, 820128 Specimen Comment: A courtesy copy of this report has been sent to Specimen Comment: [phone], . Specimen Comment: Report sent to / DR SHEFFIELD Performed at: 01 [facility] [address] [place] [address] [address], [place] [id number] MD Adalberto Hernandez MD Phone: [phone] Performed at: [address] [id number] MD [place] Us MD Phone: [phone]
--- NOTE | 2019-03-18 11:29 | NUR ---
Pharmacy Warfarin Dosing Note S:Pharmacy consulted to assist with anticoagulation therapy started 03/15/19 with target INR: 1.6 - 2.5 O:GI HERNANDEZ is a 88 year old F with TKA Tibial fracture. LABS: Last INR: 3.0 Last HGB: 7.4 Last HCT: 21.6 Last PLT: Last dose of Hold given on 03/16/19 at 1959 Previous Regimen: Vitamin K given: N Drug Interaction Changes: Ongoing Drug Interactions: A:INR of 3.0 is above desired range. Target range for this patient is: 1.6 - 2.5 P: Warfarin dose: Hold Today. MAY WANT TO GIVE 1MG THU AND THURSDAY Bridge Therapy: None Next INR due ON THURSDAY OR EARLIER Pharmacy anticoagulation service will continue to follow. [facility], 03/18/19 7188
[2019-03-18] MEDS ORDERED: WARF1TAB69 PO (12:35)
--- NOTE | 2019-03-18 12:37 | SNU/HH DC ---
DISCHARGE ORDERS DISCHARGE INFORMATION: CONDITION ON DISCHARGE: Stable CODE STATUS: Code Status: Full NURSING HOME: SNF STAY <30 DAYS: Yes POST DISCHARGE ORDERS: ACTIVITY ORDERS: Activity as tolerated WEIGHT BEARING STATUS: As tolerated BATHING ORDERS: Shower-keep dressing dry DIET AFTER DISCHARGE: Cardiac WOUND/INCISION CARE: Ice to area for comfort, Do not change dressing (maintain darin dressing for 1 week. If no drainage maintain until follow-up visit if not may change to Aquacel dressing) CHECKS AFTER DISCHARGE: CHECKS AFTER DISCHARGE: Check blood press - daily FOLLOW-UP: ADDITIONAL FOLLOW-UP: Dr. Stark on March 30, 2019 @ 10:30 TREATMENT/EQUIPMENT ORDERS: ADAPTIVE EQUIPMENT NEEDED: [facility] Physical Therapy For: Evalulation/Treatment Occupational Therapy For: Evaluation/Treatment DISCHARGE MEDICATIONS: Home Meds Active Scripts Metoprolol Tartrate (METOPROLOL TARTRATE) 25 Mg Tablet, 25 MG PO BID for 30 Days, #60 TAB Prov:GINGER ALBA MD 02/19/18 Reported Medications Fluticasone Propionate (Flonase Allergy Relief) 9.9 Ml [place].susp, 2 SPRAYS NS DAILY, BOTTLE 12/24/18 Diltiazem Hcl (CARDIZEM CD) 180 Mg Cap.er.24h, 180 MG PO DAILY for FOR HYPERTENSION, #30 CAP 0 Refills 02/18/18 Aspirin (ASPIRIN) 81 Mg Tab.chew, 1 TAB PO DAILY, #30 TAB 3 Refills 02/17/18 Alprazolam (XANAX) 0.5 Mg Tablet, 1 TAB PO BID, #60 TAB 02/17/18 Acetaminophen (TYLENOL) 325 Mg Tablet, 1 TAB PO PRN Q4HRS, #30 TAB 02/17/18 Fish Oil/Dha/Epa (FISH OIL 1,200 MG FISH OIL) 1 Each Capsule, 1 EACH PO 05/17/14 Lovastatin (LOVASTATIN) 20 Mg Tablet, 20 MG PO DAILY16 11/25/13 Levothyroxine Sodium (SYNTHROID) 100 Mcg Tablet, 100 MCG PO 11/25/13 ROSITA STARK MD Mar 18, 2019 12:37
--- NOTE | 2019-03-18 12:39 | PDOC ---
PROGRESS NOTES Subjective Subjective Problems overnight: Very sedated and sleepy yesterday much better today getting around well with her knee stable although it is painful she is taking only Tylenol for pain Objective Vital Signs Vital Signs Date Time Temp Pulse Resp B/P (MAP) Pulse Ox O2 Delivery O2 Flow Rate FiO2 03/18/19 08:11 103 96/67 03/18/19 08:04 Room Air 03/18/19 06:00 98.0 18 92 98.0 03/17/19 05:50 2.0 Physical Exam Dipika dressing intact she has excellent range of motion stability intact distal neurovascular status left leg Labs Laboratory Tests Test 03/17/19 04:15 03/18/19 05:15 Hemoglobin 8.0 g/dL (12.0-15.5) 7.4 g/dL (12.0-15.5) Hematocrit 23.3 % (36.0-47.0) 21.6 % (36.0-47.0) Mean Corpuscular Hemoglobin Concent 34 g/dL (31-37) 34 g/dL (31-37) Prothrombin Time 33.0 SEC (11.7-14.0) 31.2 SEC (11.7-14.0) Prothromb Time International Ratio 3.2 (0.8-1.1) 3.0 (0.8-1.1) Laboratory Tests Test 03/18/19 05:15 Hemoglobin 7.4 g/dL (12.0-15.5) Hematocrit 21.6 % (36.0-47.0) Mean Corpuscular Hemoglobin Concent 34 g/dL (31-37) Prothrombin Time 31.2 SEC (11.7-14.0) Prothromb Time International Ratio 3.0 (0.8-1.1) Assessment Assessment POD# left total knee arthroplasty for tibial plateau and tibial shaft fractures combined with degenerative disease Plan Plan of Care detention facility placement for getting her stronger and safer Coumadin anticoagulation Follow-up Dr. Stark 2 weeks ROSITA STARK MD Mar 18, 2019 12:39
--- NOTE | 2019-03-18 13:19 | DS ---
DATE OF DISCHARGE: 03/18/2019 ORTHOPEDIC DISCHARGE SUMMARY PRINCIPAL DIAGNOSES: Left tibial plateau fracture, left tibial shaft fracture and degenerative joint disease, left knee. PROCEDURE: Stemmed tibial component and total knee arthroplasty. DISPOSITION: halfway facility. ACTIVITY: Weightbearing as tolerated, standard total knee protocol. DISCHARGE MEDICATIONS: Coumadin anticoagulation per Anticoagulation Clinic. Tylenol for pain. Resume preoperative medications aside from fish oil, which was stopped. Maintain SERGEY dressing. May change if saturated to Aquacel dressing, otherwise maintain until followup visit. BRIEF DESCRIPTION OF HOSPITAL COURSE: The patient underwent uncomplicated fixation of tibial shaft fracture and treatment of a tibial plateau fracture, unstable nonunion, combined with degenerative changes in her knee with a long stemmed tibial prosthesis and a total knee arthroplasty. Postoperatively, she was getting around well. Noted the knee was much more stable. Pain medicine tended to sedate her very significantly affecting her ability to undergo physical therapy. She is just taking Tylenol at present, was otherwise stable medically throughout her stay and is discharged to a longterm facility in stable condition. ROSITA FELICIANO MD DR: SHAINA/bruna JOB#: [id number] / [id number]
--- NOTE | 2019-03-18 15:30 | NUR ---
Discharged to [facility] facility per w/c accompanied by son/dtr, belongings taken with pt., see instruction sheet for details
== END 2019-03-18 15:33 | DRG 470 ==
LOC: OPSVCIP 05:56 → 4 SOUTHEST 11:37
PROVIDERS: ADMIT Orthopaedic Surgery; ATTEND Orthopaedic Surgery
PROC: 0SRD069 Replacement of Left Knee Joint with Oxidized Zirconium on Polyethylene Synthetic Substitute, Cemented, Open Approach (ICD-10-PCS; principal; 2019-03-15 07:30)
DX: S82.142A Displaced bicondylar fracture of left tibia, initial encounter for closed fracture (principal); I10 Essential (primary) hypertension; E03.9 Hypothyroidism, unspecified; M17.12 Unilateral primary osteoarthritis, left knee; E78.5 Hyperlipidemia, unspecified; Z96.652 Presence of left artificial knee joint; X58.XXXA Exposure to other specified factors, initial encounter; M21.00 Valgus deformity, not elsewhere classified, unspecified site; Z80.0 Family history of malignant neoplasm of digestive organs; Z82.49 Family history of ischemic heart disease and other diseases of the circulatory system; Z90.710 Acquired absence of both cervix and uterus; Z79.899 Other long term (current) drug therapy; Y93.89 Activity, other specified; Y92.89 Other specified places as the place of occurrence of the external cause; Y99.8 Other external cause status; Z88.8 Allergy status to other drugs, medicaments and biological substances
CPT/HCPCS: 36415; 73560; 73590; 76000; 82040; 85014; 85018; 85610; 85730; 86850; 86900; 86901; 88304; 88311; A7015; C1713; J0171; J0330; J0690; J0696; J1100; J1885; J2001; J2270; J2405; J2704; J2710; J2795; J3010; J3370; J3490; J7030; J7120; 97116; 97150; 97530; 97535; C1769; G0378